=== PATIENT | female | born 1965 | race Caucasian/White ===

== ENCOUNTER → 2016-11-15 | Outpatient (CLI) | payer OTHER ==
[2016-11-15 08:52] VITALS: BP 127/66; PULSE 87; RESP 16; TEMP 98.2; BMI 34.5
--- NOTE | 2016-11-15 09:46 | P.GSHP ---
History of Present Illness H&P Date: 11/15/16 Chief Complaint: Obesity BMI 34.6 51 years old female with obesity BMI 34.6, height 5 feet 2 inches, weight 85.7 KG presents for bariatric surgery consultation. She has attended weight loss seminar. She has attempted nonsurgical weight loss with special diets including Weight Watchers, Slim fast, Atkins and exercise regimen. She has lost some weight but is unable to maintain sustained results. Her comorbid conditions include : Hypertension Hyperlipidemia PREOP VISIT#1 Weight 85.7KG, BMI 34.6 - Review of Systems Comment: Constitutional: Denies fever, weight loss or loss of appetite HEENT: No difficulty in vision or hearing. Denies dysphagia. Cardiovascular: Denies chest pain, palpitations, dizziness, shortness of breath. Respiratory: No cough or SOB Gastrointestinal: No recent change in bowel habits, no abdominal pain, no nausea or vomiting. Mild reflux symptoms and no postprandial right upper quadrant pain. Integumentary: No skin ulcers or breakdown Genitourinary: No urinary incontinence, hematuria or dysuria Neurologic: No seizures, denies weakness in upper or lower extremities Musculoskeletal: Occasional left knee pain. Psychiatry: No history of depression, no suicidal ideation, no anxiety or psychosis Past Medical History Past Medical History: GERD/Reflux, Hyperlipidemia, Hypertension History of Any Multi-Drug Resistant Organisms: None Reported Past Surgical History: Cholecystectomy, Hysterectomy Past Anesthesia/Blood Transfusion Reactions: No Reported Reaction Past Psychological History: No Psychological Hx Reported Smoking Status: Never smoker Medications and Allergies Home Medications Medication Instructions Recorded Confirmed Type Lisinopril [Prinivil] 10 mg PO DAILY 11/15/16 11/15/16 History Pravastatin Sodium [Pravachol] 40 mg PO HS 11/15/16 11/15/16 History Allergies Allergy/AdvReac Type Severity Reaction Status Date / Time No Known Allergies Allergy Verified 11/15/16 08:37 Surgical - Exam Vital Signs Temp Pulse Resp BP 98.2 F 87 16 127/66 11/15/16 08:34 11/15/16 08:34 11/15/16 08:34 11/15/16 08:34 General: Patient is alert and oriented to time, place and person and cooperative with exam. HEENT: No pallor, no icterus, no thyroid enlargement, no cervical lymphadenopathy. Chest: Bilateral equal breath sounds present. No wheezes, no crackles. Cardiovascular: Regular rate and rhythm. Abdomen: Soft, nontender, nondistended. Integumentary:. No active ulcers or discharge. Neurologic: Cranial nerves II-XII intact. Strength upper and lower extremities 5/5. No focal neurologic deficits. Gait is normal. Psychiatric: No anxiety or psychosis. No suicidal thoughts. Assessment and Plan (1) Obesity (BMI 30.0-34.9) Status: Acute (2) Hypertension Status: Acute (3) Hyperlipidemia Status: Acute Plan: 1. Bilateral screening mammogram 2. Patient has obesity with BMI of 34.6. She has tried various diets and exercise regimens without much success. At this time her BMI is less than 35 and she does not qualify for bariatric surgery. 3. Patient encouraged to take daily multivitamins 4. Will follow up as needed. Will not perform any bariatric surgery work up at this time
== END ==
LOC: BARWHC3 08:28
PROVIDERS: ATTEND Surgery
DX: E66.9 Obesity, unspecified (principal); I10 Essential (primary) hypertension; E78.5 Hyperlipidemia, unspecified; Z68.34 Body mass index [BMI] 34.0-34.9, adult; Z79.899 Other long term (current) drug therapy
CPT/HCPCS: 99201

== ENCOUNTER → 2016-12-11 | Outpatient (CLI) | payer OTHER ==
[2016-12-11 08:28] VITALS: BP 113/82; PULSE 82; TEMP 97.9; BMI 35.7
--- NOTE | 2016-12-11 09:14 | P.GSHP ---
History of Present Illness H&P Date: 12/11/16 Chief Complaint: Morbid Obesity BMI 35.8 51 years old female with obesity BMI height 5 feet 2 inches, weight presents for bariatric surgery consultation. She has attended weight loss seminar. She has attempted nonsurgical weight loss with special diets including Weight Watchers, Slim fast, Atkins and exercise regimen. She has lost some weight but is unable to maintain sustained results. Her comorbid conditions include : Hypertension Hyperlipidemia She has not decided about gastric bypass vs. sleeve PREOP VISIT#1 11/15/16 Weight 85.7KG, BMI 34.6 PREOP VISIT#2 12/11/16 Weight 88.6 KG , BMI 35.8 - Review of Systems Comment: Constitutional: Denies fever, weight loss or loss of appetite HEENT: No difficulty in vision or hearing. Denies dysphagia. Cardiovascular: Denies chest pain, palpitations, dizziness, shortness of breath. Respiratory: No cough or SOB Gastrointestinal: No recent change in bowel habits, no abdominal pain, no nausea or vomiting. Mild reflux symptoms well controlled with TUMS ( once or twice/week) and no postprandial right upper quadrant pain. Integumentary: No skin ulcers or breakdown Genitourinary: No urinary incontinence, hematuria or dysuria Neurologic: No seizures, denies weakness in upper or lower extremities Musculoskeletal: Neck pain Psychiatry: No history of depression, no suicidal ideation, no anxiety or psychosis Past Medical History Past Medical History: GERD/Reflux, Hyperlipidemia, Hypertension History of Any Multi-Drug Resistant Organisms: None Reported Past Surgical History: Cholecystectomy, Hysterectomy Past Anesthesia/Blood Transfusion Reactions: No Reported Reaction Past Psychological History: No Psychological Hx Reported Smoking Status: Never smoker Medications and Allergies Home Medications Medication Instructions Recorded Confirmed Type Lisinopril [Prinivil] 10 mg PO DAILY 11/15/16 12/11/16 History Pravastatin Sodium [Pravachol] 40 mg PO HS 11/15/16 12/11/16 History Allergies Allergy/AdvReac Type Severity Reaction Status Date / Time No Known Allergies Allergy Verified 12/11/16 08:22 Surgical - Exam Vital Signs Temp Pulse BP 97.9 F 82 113/82 12/11/16 08:20 12/11/16 08:20 12/11/16 08:20 General: Patient is alert and oriented to time, place and person and cooperative with exam. HEENT: No pallor, no icterus, no thyroid enlargement, no cervical lymphadenopathy. Chest: Bilateral equal breath sounds present. No wheezes, no crackles. Cardiovascular: Regular rate and rhythm. Abdomen: Soft, nontender, nondistended. Integumentary:. No active ulcers or discharge. Neurologic: Cranial nerves II-XII intact. Strength upper and lower extremities 5/5. No focal neurologic deficits. Gait is normal. Psychiatric: No anxiety or psychosis. No suicidal thoughts. Results - Labs 12/11/16 09:16 12/11/16 09:16 Assessment and Plan (1) Hyperlipidemia Status: Acute (2) Hypertension Status: Acute Plan: 1. Bilateral screening mammogram 2. Patient has obesity with BMI of 35.8 . She has tried various diets and exercise regimens without much success. 3. Patient encouraged to take daily multivitamins 4. EGD with bx 5. Preop labs including mineral and vitamin levels 6. 6 months supervised weight loss required 7. Needs Pyschiatry/Psychology evaluation
[2016-12-11 09:22] LABS: EKG EKG PERFORMED
[2016-12-11 10:52] LABS: CH 29.7; CHCM 34.1; HCT 43.9 % (34.0-46.0); HDW 2.55; HGB 15.1 gm/dL (11.4-16.0); MCHC 34.3 g/dL (31.0-37.0); MCV 87.3 fL (80.0-100.0); Mean Platelet Volume 6.6; RBC 5.03 m/uL (3.80-5.40); RDW 12.8 % (11.5-15.5); WBC 8.3 k/uL (3.8-10.6)
[2016-12-11 11:07] LABS: ALT 39 U/L (9-52); AST 29 U/L (14-36); Alkaline Phosphatase 102 U/L (38-126); Anion Gap 13 mmol/L; Blood Urea Nitrogen 24 mg/dL (7-17); Calcium 10.2 mg/dL (8.4-10.2); Carbon Dioxide 25 mmol/L (22-30); Chloride 104 mmol/L (98-107); Cholesterol 206 mg/dL (<200); Glucose 130 mg/dL (74-99); HDL Cholesterol 50 mg/dL (40-60); Iron 80 ug/dL (37-170); Non-African American GFR(MDRD) >60 (>60 ml/min/1.73 sqM); Potassium 4.7 mmol/L (3.5-5.1); Sodium 142 mmol/L (137-145); Total Bilirubin 0.5 mg/dL (0.2-1.3); Total Protein 7.5 g/dL (6.3-8.2); Triglycerides 212 mg/dL (<150)
[2016-12-11 11:17] LABS: % Iron Saturation 22.5 % (20-50); Total Iron Binding Capacity 355 ug/dL (265-497)
[2016-12-11 12:13] LABS: Vitamin B12 800 pg/mL (239-931)
[2016-12-11 14:34] LABS: Hemoglobin A1C 6.1 % (4.2-6.1)
== END | disposition home or self-care (01) ==
LOC: BARWHC3 07:52
PROVIDERS: ATTEND Surgery
DX: E66.01 Morbid (severe) obesity due to excess calories (principal); E78.5 Hyperlipidemia, unspecified; I10 Essential (primary) hypertension; D50.8 Other iron deficiency anemias; E44.0 Moderate protein-calorie malnutrition; E55.9 Vitamin D deficiency, unspecified; Z68.35 Body mass index [BMI] 35.0-35.9, adult
CPT/HCPCS: 36415; 80053; 80061; 82306; 82607; 82728; 82746; 83036; 83540; 83550; 84425; 84443; 85027; 93005; 99211

== ENCOUNTER 2016-12-27 11:13 | Day surgery (SDC) | payer OTHER ==
[2016-12-22 10:08] VITALS: BMI 35.6
[~2016-12-27 11:13] MED LIST: LACTATED RINGERS 1,000 ML IV SCH; LIDOCAINE 1% 20 ML VIAL (10MG/ML) FOR IV START INTRADERMA PRN
[2016-12-27 11:57] VITALS: RESP 16; TEMP 98.5
[2016-12-27] MEDS ORDERED: MIDAZOLAM 2 MG/2 ML VIAL IV ONE (12:12)
[2016-12-27] MEDS ORDERED: PROPOFOL 10 MG/ML 20 ML VIAL IV ONE (12:41)
--- NOTE | 2016-12-27 12:59 | P.OP ---
Date of Procedure: 12/27/16 Preoperative Diagnosis: Obesity BMI 35.7 Gastroesophageal reflux disease Postoperative Diagnosis: Same Procedure(s) Performed: Esophagogastroduodenoscopy with biopsy Implants: Anesthesia: MAC Surgeon: Kathrin Dahl Pathology: other Condition: stable Disposition: PACU Indications for Procedure: 51 years old female with obesity BMI 35.7 presents for bariatric surgery workup. She has occasional reflux symptoms. Informed consent obtained and patient did undergo EGD with possible biopsy Operative Findings: Patulous GE junction. Small Hill grade 1 hiatal hernia Description of Procedure: A timeout was performed to verify the correct patient and correct procedure. Patient was on continuous vitals and pulse ox monitoring throughout the procedure. She was placed in lateral decubitus position and an oral bite block was inserted. A well-lubricated Olympus upper endoscope was passed orally. The esophagus was intubated without difficulty. The vocal cords were visualised and protected at all times. The endoscope was passed beyond the pylorus into the first and second portion of the duodenum. No abnormality was noted in the duodenum mucosa. Two random biopsies were taken from the gastric antrum using cold biopsy forceps. The scope was then retroflexed. The GE junction was patulous and a small hiatal was noted which is Hill Grade 1. No mass, active ulcer or bleeding stigmata noted within the gastric lumen. The GE junction is measured at 38 cm from the incisors . Mild distal esophagitis. This area was biopsied using cold biopsy forceps.The endoscope was gradually withdrawn. No abnormality identified in the esophagus. Patient tolerated the procedure well and was taken to post anesthesia care unit in stable condition. FINAL DIAGNOSIS: 1. Hill Grade 1 Hiatal hernia 2. Gastro esophageal reflux disease SPECIMEN: Antral biopsy GE junction biopsy Final Pathologic Diagnosis A. GASTRIC ANTRUM, BIOPSY: MILD CHRONIC GASTRITIS. IMMUNOPEROXIDASE STAIN NEGATIVE FOR HELICOBACTER PYLORI ORGANISMS (CONTROLS APPROPRIATE). B. ESOPHAGUS, BIOPSY: BENIGN SQUAMOUS MUCOSA WITHOUT HISTOPATHOLOGIC CHANGES AND ADJACENT GASTRIC GLANDULAR MUCOSA WITH MILD CHRONIC INFLAMMATION. NEGATIVE FOR INTESTINAL METAPLASIA.
[2016-12-27 13:33] VITALS: BP 126/81; PULSE 77
== END 2016-12-27 13:40 | disposition home or self-care (01) ==
LOC: ORWHC2ENDO 11:13
PROVIDERS: ATTEND Surgery
DX: K29.50 Unspecified chronic gastritis without bleeding (principal); K44.9 Diaphragmatic hernia without obstruction or gangrene; K21.9 Gastro-esophageal reflux disease without esophagitis; E66.01 Morbid (severe) obesity due to excess calories; Z68.35 Body mass index [BMI] 35.0-35.9, adult; I10 Essential (primary) hypertension; E78.5 Hyperlipidemia, unspecified; Z79.899 Other long term (current) drug therapy
CPT/HCPCS: 88305; 88342; 43239; J2250; J2704

== ENCOUNTER → 2017-04-16 | Outpatient (CLI) | payer OTHER ==
[2017-04-16 08:52] VITALS: BP 141/89; PULSE 90; RESP 16; TEMP 98.4; BMI 35.7
--- NOTE | 2017-04-16 10:16 | P.GSHP ---
History of Present Illness H&P Date: 04/16/17 51 years old female with obesity BMI height 5 feet 2 inches, weight presents for bariatric surgery consultation. She has attended weight loss seminar. She has attempted nonsurgical weight loss with special diets including Weight Watchers, Slim fast, Atkins and exercise regimen. She has lost some weight but is unable to maintain sustained results. Her comorbid conditions include : Hypertension Hyperlipidemia GERD requiring daily Tums EGD - small hiatal hernia PREOP VISIT#1 11/15/16 Weight 85.7KG, BMI 34.6 PREOP VISIT#2 12/11/16 Weight 88.6 KG , BMI 35.8 - Review of Systems Comment: Constitutional: Denies fever, weight loss or loss of appetite HEENT: No difficulty in vision or hearing. Denies dysphagia. Cardiovascular: Denies chest pain, palpitations, dizziness, shortness of breath. Respiratory: No cough or SOB Gastrointestinal: No recent change in bowel habits, no abdominal pain, no nausea or vomiting. Reflux symptoms well controlled with TUMS ( once or twice/ week) and no postprandial right upper quadrant pain. Integumentary: No skin ulcers or breakdown Genitourinary: No urinary incontinence, hematuria or dysuria Neurologic: No seizures, denies weakness in upper or lower extremities Musculoskeletal: Neck pain Psychiatry: No history of depression, no suicidal ideation, no anxiety or psychosis Past Medical History Past Medical History: Hyperlipidemia, Hypertension History of Any Multi-Drug Resistant Organisms: None Reported Past Surgical History: Section, Cholecystectomy, Hysterectomy Additional Past Surgical History / Comment(s): CERVICAL FORAMINOTOMY, D & C X 2 , C-SECT X2, EXPLORATORY LAP, COLONOSCOPY, LT CATARACT REMOVAL Past Anesthesia/Blood Transfusion Reactions: No Reported Reaction Past Psychological History: No Psychological Hx Reported Smoking Status: Never smoker Past Alcohol Use History: Rare Past Drug Use History: None Reported - Past Family History Father Family Medical History: Cancer Medications and Allergies Home Medications Medication Instructions Recorded Confirmed Type Lisinopril [Prinivil] 10 mg PO HS 11/15/16 12/27/16 History Pravastatin Sodium [Pravachol] 40 mg PO HS 11/15/16 12/27/16 History Allergies Allergy/AdvReac Type Severity Reaction Status Date / Time No Known Allergies Allergy Verified 12/27/16 11:51 Surgical - Exam Vital Signs Temp Pulse Resp BP 98.4 F 90 16 141/89 04/16/17 08:46 04/16/17 08:46 04/16/17 08:46 04/16/17 08:46 General: Patient is alert and oriented to time, place and person and cooperative with exam. HEENT: No pallor, no icterus, no thyroid enlargement, no cervical lymphadenopathy. Chest: Bilateral equal breath sounds present. No wheezes, no crackles. Cardiovascular: Regular rate and rhythm. Abdomen: Soft, nontender, nondistended. Integumentary:. No active ulcers or discharge. Neurologic: Cranial nerves II-XII intact. Strength upper and lower extremities 5/5. No focal neurologic deficits. Gait is normal. Psychiatric: No anxiety or psychosis. No suicidal thoughts. Assessment and Plan (1) Obesity (BMI 30-39.9) Current Visit: Yes Status: Acute Code(s): E66.9 - OBESITY, UNSPECIFIED SNOMED Code(s): 739295362 (2) Hyperlipidemia Current Visit: No Status: Acute Code(s): E78.5 - HYPERLIPIDEMIA, UNSPECIFIED SNOMED Code(s): 70127665 (3) Hypertension Current Visit: No Status: Acute Code(s): I10 - ESSENTIAL (PRIMARY) HYPERTENSION SNOMED Code(s): 73575107 (4) GERD (gastroesophageal reflux disease) Current Visit: Yes Status: Acute Code(s): K21.9 - GASTRO-ESOPHAGEAL REFLUX DISEASE WITHOUT ESOPHAGITIS SNOMED Code(s): 900661368 Plan: 1. Bilateral screening mammogram 2. Patient has obesity with BMI of 35.8 . She has tried various diets and exercise regimens without much success. She has symptomatic reflux requiring daily Tums 3. Patient encouraged to take daily multivitamins 4. EGD with bx - results discussed 5. Preop labs including mineral and vitamin levels - results reviewed 6. 6 months supervised weight loss required 7. Needs Pyschiatry/Psychology evaluation 8. An indepth discussion was held with the patient, with GERD gastric bypass in a better option as sleeve may worsen reflux symptoms. 9. Patient care will be taken over by Dr. Carvajal including presurgical discussion
== END | disposition home or self-care (01) ==
LOC: BARWHC3 08:30
PROVIDERS: ATTEND Surgery
DX: E66.9 Obesity, unspecified (principal); E78.5 Hyperlipidemia, unspecified; I10 Essential (primary) hypertension; K21.9 Gastro-esophageal reflux disease without esophagitis; Z68.35 Body mass index [BMI] 35.0-35.9, adult; Z79.899 Other long term (current) drug therapy; Z01.812 Encounter for preprocedural laboratory examination
CPT/HCPCS: 97804

== ENCOUNTER → 2017-04-18 | Outpatient (CLI) | payer OTHER ==
[2017-04-18 16:34] VITALS: BP 159/92; PULSE 60; TEMP 97.9; BMI 35.6
--- NOTE | 2017-06-17 13:14 | P.HPBAR ---
Bariatric H&P - History & Physicial H&P Date: 04/18/17 History & Physicial: Visit/CC: preop visit Patient initial contact: 10/21/16 Initial weight: 88.621 kg Initial weight in pounds: 195.38 Height: 5 ft 2 in Initial BMI: 35.7 Last weight: Current weight: 88.451 kg Current weight in pounds: 195.00 Current BMI: 35.6 Muir body weight (based on NIH guidelines): 49.895 kg Excess body weight loss: 0.4% The patient is a 51 year-old F who presents for Bariatric Assessment. DATE OF SERVICE: 04/18/2017 REASON FOR CONSULTATION: Bariatric evaluation. HISTORY OF PRESENT ILLNESS: The patient is a 51-year-old female who presents with history morbid obesity. She reports a family history of morbid obesity where her cousin had sleeve gastrectomy. She reports lower back pain. She has developed fibromyalgia. She has osteoarthritis of the bilateral knees. She has personal history of lupus. As a result of morbid obesity, she has developed hypertension including sleep apnea. She has family history of diabetes type 2. She was personal history of metabolic syndrome as well as prediabetes. Now she presents for surgical intervention. She has tried medical supervised weight loss including Weight Watchers, Slim fast, Atkins and exercise regimen. Her highest personal weight is 195 pounds. She is looking into gastrectomy. She denies any familial history of esophageal or stomach cancer. Her present weight is 195 pounds. She denies any food ALLERGIES. No report of diarrhea or constipation. At her height of 5 foot 2 inches, her ideal body weight is 135 pounds. Her present weight is 195 pounds. She is 60 pounds overweight. PAST MEDICAL HISTORY: 1. Morbid obesity. 2. Body mass index of 35.8. 3. Metabolic syndrome. 4. Hyperlipidemia. 5. Hypertension. 6. Lupus. PAST SURGICAL HISTORY: 1. section. 2. Cholecystectomy. 3. Hysterectomy. 4. D&C 2. 5. Cervical foraminotomy. 6. Exploratory laparotomy. 7. Colonoscopy. 8. Left cataract extraction. HOME MEDICATIONS: 1. Prinivil. 2. Pravachol. ALLERGIES: Denies. SOCIAL HISTORY: No active tobacco use. FAMILY HISTORY: No family history of ulcerative colitis disease or Crohn's disease. Family history of morbid obesity. Lupus in family. No reports of stomach or esophageal cancer. REVIEW OF ORGAN SYSTEMS: CONSTITUTIONAL: At her height of 5 foot 2 inches, her ideal body weight is 135 pounds. Her present weight is 195 pounds. She is 60 pounds overweight. Her highest personal weight is 195 pounds. Body mass index of 35.8. HEENT: Denies any active troubles with vision or hearing. No troubles with swallowing. ENDOCRINE: No hypothyroidism. She is prediabetic. CARDIOVASCULAR: No reports of palpitations or heart attacks or chest pain. History of hypertension. RESPIRATORY: Has daytime somnolence including snoring and sleep apnea. No asthma. GI: Denies any bright red blood per rectum. Does have gastroesophageal reflux disease. MUSCULOSKELETAL: Has lower back pain and joint pain. NEURO: No headaches. No seizure disorders. PSYCH: No depression without suicidal ideation. Has anxiety. RHEUMATOLOGIC: Has lupus. No rheumatoid arthritis. HEMATOLOGIC: Denies any abnormal bleeding or bruising. No personal history of DVTs. SKIN: No rash. No skin cancer. PHYSICAL EXAM: VITAL SIGNS: Height 5 foot 2 inches, weight 195 pounds. BMI 35.7. Vital Signs Temp 97.9 F 04/18/17 16:31 Pulse 60 04/18/17 16:31 Resp BP 159/92 04/18/17 16:31 Pulse Ox GENERAL: Well-developed in no acute distress. HEENT: No scleral icterus. Extraocular movements grossly intact. Hears conversational speech. No nasal drainage. NECK: Supple without lymphadenopathy. Neck circumference 16-3/4 inches. CHEST: Nonlabored respirations with equal bilateral excursions. CARDIOVASCULAR: Regular rate. Regular rhythm. Distal 2+ pulses. ABDOMEN: Obese, soft, nontender, nondistended. Waist circumference is 43.75 inches. MUSCULOSKELETAL: No clubbing, cyanosis. Gross strength 5/5 distal lower extremities. No pre-tibial pitting edema. NEURO: No focal or lateralizing signs. Cranial nerves 2 through 12 grossly within normal limits. PSYCH: Appropriate affect. Alert and oriented to person, place and time. SKIN: Good skin turgor. Well perfused. STUDIES: EGD demonstrates gastroesophageal reflux disease including hiatal hernia. Final Pathologic Diagnosis A. GASTRIC ANTRUM, BIOPSY: MILD CHRONIC GASTRITIS. IMMUNOPEROXIDASE STAIN NEGATIVE FOR HELICOBACTER PYLORI ORGANISMS (CONTROLS APPROPRIATE). B. ESOPHAGUS, BIOPSY: BENIGN SQUAMOUS MUCOSA WITHOUT HISTOPATHOLOGIC CHANGES AND ADJACENT GASTRIC GLANDULAR MUCOSA WITH MILD CHRONIC INFLAMMATION. NEGATIVE FOR INTESTINAL METAPLASIA. ASSESSMENT: 1. Morbid obesity due to excess calories. 2. Body mass index of 35.8. 3. Metabolic syndrome. 4. Hyperlipidemia. 5. Hypertension. 6. Lupus. 7. Family history morbid obesity. 8. Sleep disturbance, sleep apnea. 9. Vitamin D deficiency. PLAN: 1. Surgical options including a band, gastric bypass, sleeve gastrectomy were described in detail. Alternatives such as gastric balloon including duodenal switch were described. 2. The [place] bariatric surgical collaborative data and outcomes calculator were described with surgical options. 3. Recommend a bariatric metabolic panel to evaluate for micro- including macronutrient deficiencies. 4. For history of daytime somnolence, recommend evaluation and treatment for sleep apnea. 5. Dietary surveillance and counseling was reviewed, I have asked increased protein intake to at least 60 grams daily. 6. Recommend medical risk assessment. 7. Psych assessment per insurance guidelines. 8. Patient has been seen Dr. Dahl in the interim also for medical supervised weight loss. Patient also reports daily Tums. With her symptoms of gastroesophageal reflux disease, gastric bypass is being evaluated. Thank you for this consultation. Past Medical History Past Medical History: Hyperlipidemia, Hypertension History of Any Multi-Drug Resistant Organisms: None Reported Past Surgical History: Section, Cholecystectomy, Hysterectomy Additional Past Surgical History / Comment(s): CERVICAL FORAMINOTOMY, D & C X 2 , C-SECT X2, EXPLORATORY LAP, COLONOSCOPY, LT CATARACT REMOVAL Past Anesthesia/Blood Transfusion Reactions: No Reported Reaction Past Psychological History: No Psychological Hx Reported Smoking Status: Never smoker Past Alcohol Use History: Rare Past Drug Use History: None Reported - Past Family History Father Family Medical History: Cancer Surgical - Exam Vital Signs Temp Pulse BP 97.9 F 60 159/92 04/18/17 16:31 04/18/17 16:31 04/18/17 16:31 Bariatric Checklist Checklist: Plan: Checklist: EGD: 1. Hiatal hernia: 2. H. Pylori: HgbA1c: Vitamin D: Smoking: Never smoker Primary care physician referral: Adrianna Psychiatry clearance: Cardiology clearance: Sleep study: Diet journal: VTE risk score: VTE risk level: Rehab needs at discharge:
== END | disposition home or self-care (01) ==
LOC: BARWHC3 15:38
PROVIDERS: ATTEND Surgery Plastic and Reconstructive Surgery
DX: Z48.815 Encounter for surgical aftercare following surgery on the digestive system (principal); E66.01 Morbid (severe) obesity due to excess calories; Z68.35 Body mass index [BMI] 35.0-35.9, adult; E88.81 Metabolic syndrome and other insulin resistance; I10 Essential (primary) hypertension; E78.5 Hyperlipidemia, unspecified; M32.9 Systemic lupus erythematosus, unspecified; G47.30 Sleep apnea, unspecified; E55.9 Vitamin D deficiency, unspecified; Z90.49 Acquired absence of other specified parts of digestive tract; Z90.710 Acquired absence of both cervix and uterus; Z98.890 Other specified postprocedural states; Z79.899 Other long term (current) drug therapy
CPT/HCPCS: 99211

== ENCOUNTER → 2019-03-28 | Outpatient (CLI) | payer OTHER ==
--- NOTE | 2019-03-28 11:59 | MR ---
EXAMINATION TYPE: MR brain wo con DATE OF EXAM: 03/28/2019 COMPARISON: NONE HISTORY: Migraine headache. TECHNIQUE: Multiplanar, multisequence imaging of the brain and brainstem is performed without IV cont rast. FINDINGS: Diffusion weighted images demonstrate no evidence of a recent infarct or other diffusion abnormality. There is no extraaxial fluid collection or significant white matter signal abnormality. The ventricu lar system and cisternal spaces are normal in size and appearance. The brain volume is age appropria te. Midline structures demonstrate normal morphology. The craniocervical junction appears within normal limits. Normal vascular flow voids are present. There is 1.5 cm mucous retention cyst or polyp in the mid left maxillary sinus otherwise paranasal sinuses are clear. Some artifact distortion at level of the globes is noted. Some patchy fluid inferiorly in the left maxillary sinus is present coronal dorothy ge 4 for reference. IMPRESSION: Possible mild inferior left-sided mastoiditis, correlate clinically. No suspicious white matter changes or other significant findings seen to account for patient's symptoms of migraine heada ches.
== END | disposition home or self-care (01) ==
LOC: RADMRIMAIN 11:04
PROVIDERS: ATTEND Psychiatry & Neurology Neurology
DX: G43.019 Migraine without aura, intractable, without status migrainosus (principal)
CPT/HCPCS: 70551

== ENCOUNTER → 2022-04-24 | Outpatient (CLI) | payer OTHER ==
[2022-04-24 16:10] LABS: Appearance,Urine Clear (Clear); Bilirubin,Urine Negative (Negative); Blood,Urine Negative (Negative); Color,Urine Yellow; Glucose,Urine (UA) Negative (Negative); Hyaline Casts,Urine 7 /lpf (0-2); Ketones,Urine 1+ (Negative); Leukocyte Esterase,Urine Small (Negative); Mucus,Urine Few /hpf; Nitrite,Urine Negative (Negative); PH, Urine 6.5 (5.0-8.0); Protein,Urine Trace (Negative); RBC,Urine 5 /hpf (0-5); Specific Gravity,Urine 1.026 (1.001-1.035); Squamous Epithelial Cell,Urine <1 /hpf (0-4); Urobilinogen,Urine <2.0 mg/dL (<2.0); WBC,Urine 10 /hpf (0-5)
[2022-04-24 18:48] LABS: Protein, Total 7.4 g/dL (6.2-8.2)
[2022-04-24 18:56] LABS: Hepatitis B Surface Antigen Nonreactive (Nonreactive); Hepatitis C IgG Antibody Nonreactive (Nonreactive)
[2022-04-24 19:01] LABS: Basophils # (A) 0.02 X 10*3/uL (0.00-0.10); Basophils % (A) 0.3 %; Eosinophils # (A) 0.01 X 10*3/uL (0.04-0.35); Eosinophils % (A) 0.2 %; HCT 45.1 % (37.2-46.3); HGB 15.1 g/dL (12.0-15.0); Immature Grans, Automated 0.3 %; Lymphocytes # (A) 0.83 X 10*3/uL (0.90-5.00); Lymphocytes % (A) 13.3 %; MCH 29.5 pg (27.0-32.0); MCHC 33.5 g/dL (32.0-37.0); MCV 88.1 fL (80.0-97.0); Mean Platelet Volume 9.2 fL (9.5-12.2); Monocytes # (A) 0.12 X 10*3/uL (0.20-1.00); Monocytes % (A) 1.9 %; NRBC Per 100 WBC 0 /100 WBCS (0.0-0.0); Neutrophils # (A) 5.26 X 10*3/uL (1.80-7.70); Platelet Count 347 X 10*3/uL (140-440); RBC 5.12 X 10*6/uL (4.10-5.20); RDW 12.1 % (11.5-14.5); WBC 6.26 X 10*3/uL (4.50-10.00)
[2022-04-24 19:05] LABS: ALT 21 U/L (8-44); AST 26 U/L (13-35); African American GFR (CKD) 74.7 (60.0-200.0); Albumin 4.9 g/dL (3.8-4.9); Albumin/Globulin Ratio 1.88 (1.60-3.17); Alkaline Phosphatase 108 U/L (41-126); BUN/Creat Ratio 21.17 Ratio (12.00-20.00); C Reactive Protein <0.30 mg/dL (0.00-0.80); Calcium 10.1 mg/dL (8.7-10.3); Chloride 107 mmol/L (96-109); Creatine Kinase 94 U/L (26-186); Globulin 2.6 g/dL (1.6-3.3); Glucose 104 mg/dL (70-110); Non-African American GFR(CKD) 64.4 (60.0-200.0); Potassium 4.4 mmol/L (3.5-5.5); Sodium 142 mmol/L (135-145); Total Protein 7.5 g/dL (6.2-8.2); Uric Acid 4.2 mg/dL (2.9-7.7)
[2022-04-24 19:14] LABS: Rheumatoid Factor, Qnt <10 IU/mL (0-15)
[2022-04-24 19:36] LABS: Erythrocyte Sedimentation Rate 16 mm/Hr (0-30)
[2022-04-24 21:42] LABS: Anti-Smith Ab Interp POSITIVE (NEGATIVE); Cardiolipin Ab IgG Interp NEGATIVE (NEGATIVE); Cardiolipin Ab IgM Interp NEGATIVE (NEGATIVE); Cardiolipin IgM Antibody <1.5 U/mL; Scleroderma SC-70 Ab <0.2 AI
[2022-04-24 21:43] LABS: Anti-DNA, DS unit <1.0 IU/mL; Centromere Antibody <0.2 AI; Centromere Antibody Interp NEGATIVE (NEGATIVE); Cyclic Citrull Pep IgG Unit <0.5 U/mL; Cyclic Citrullinated Pep IgG NEGATIVE (NEGATIVE); DNA Double-Stranded NEGATIVE (NEGATIVE)
[2022-04-25 11:06] LABS: Angiotensin-1 Converting Enz. 7 U/L (8-52)
[2022-04-25 11:31] LABS: APTT 37 Sec(s) (<43); Dilute Russell Viper Venom 33 Sec(s) (<44)
[2022-04-25 13:02] LABS: Histone Antibody 0.2 UNITS (<1.0)
[2022-04-25 13:21] LABS: C-ANCA <1:20 Titer (<1:20)
[2022-04-25 13:52] LABS: Free Kappa Lt Chain Qnt, Serum 2.41 mg/dL (0.33-1.94); Free Lambda Lt Chain Qnt, Seru 1.34 mg/dL (0.57-2.63)
[2022-04-25 14:12] LABS: HLA B27 NEGATIVE
[2022-04-25 15:21] LABS: Albumin 4.43 g/dL (3.80-4.90); Gamma Globulin 0.95 g/dL (0.70-1.50)
[2022-04-26 09:03] LABS: Aldolase 3.1 U/L (1.2-7.6)
== END | disposition home or self-care (01) ==
LOC: LABWHC1 13:01
PROVIDERS: ATTEND Internal Medicine Rheumatology
DX: M13.0 Polyarthritis, unspecified (principal)
CPT/HCPCS: 36415; 80053; 81001; 82085; 82164; 82306; 82550; 83516; 83520; 83883; 84165; 84439; 84443; 84550; 85025; 85613; 85652; 85730; 86038; 86039; 86140; 86147; 86160; 86162; 86200; 86225; 86235; 86255; 86334; 86431; 86803; 86812; 87340

== ENCOUNTER 2022-06-06 14:53 | Observation (INO) | payer OTHER ==
[2022-06-06] MEDS ORDERED: ASPIRIN 81 MG PO STA (15:25)
[2022-06-06] MEDS ORDERED: SODIUM CHLORIDE 0.9% 500 ML 500 ML IV STA (15:25)
[2022-06-06] MEDS ORDERED: NITROGLYCERIN OINT 1 INCH/GM PACKET TOPICAL STA (15:25)
--- NOTE | 2022-06-06 15:29 | ED ---
General Adult HPI - General Chief complaint: Chest Pain Stated complaint: lupus flare Time Seen by Provider: 06/06/22 15:17 Source: patient, RN notes reviewed Mode of arrival: ambulatory Limitations: no limitations - History of Present Illness Initial comments: Patient is a pleasant 56-year-old female presenting to emergency Department with multiple complaints. Patient feels symptoms could be related to her lupus. Patient has been having daily vomiting for the past several months. Patient has been severely fatigued. Patient has concerns for dehydration. Patient has been having exertional chest discomfort and dyspnea over the past month. Symptoms are intermittent. Patient feels generally weak. No isolated area of weakness or confusion. - Related Data Home Medications Medication Instructions Recorded Confirmed Pravastatin Sodium [Pravachol] 40 mg PO DAILY 11/15/16 06/06/22 lisinopriL [Prinivil] 10 mg PO DAILY 11/15/16 06/06/22 Acetaminophen Tab [Tylenol Tab] 500 mg PO Q8H PRN 06/06/22 06/06/22 DULoxetine HCL [Cymbalta] 60 mg PO DAILY 06/06/22 06/06/22 Dulaglutide [Trulicity] 0.75 mg SQ TU 06/06/22 06/06/22 Hydroxychloroquine Sulfate 200 mg PO DAILY 06/06/22 06/06/22 [Plaquenil] Naltrexone HCl/Bupropion HCl 2 tab PO BID 06/06/22 06/06/22 [Contrave ER 8-90 mg Tablet] Ondansetron Odt [Zofran Odt] 8 mg PO TID PRN 06/06/22 06/06/22 SUMAtriptan succinate [Imitrex] 50 mg PO BID PRN 06/06/22 06/06/22 Topiramate [Topamax] 50 mg PO DAILY 06/06/22 06/06/22 Allergies Allergy/AdvReac Type Severity Reaction Status Date / Time sulfamethoxazole AdvReac Migraines Verified 06/06/22 16:48 [From Bactrim] trimethoprim [From Bactrim] AdvReac Migraines Verified 06/06/22 16:48 seasonal/environmental Allergy Wheezing Uncoded 06/06/22 16:48 Review of Systems ROS Statement: Those systems with pertinent positive or pertinent negative responses have been documented in the HPI. ROS Other: All systems not noted in ROS Statement are negative. Respiratory: Reports: as per HPI Cardiovascular: Reports: as per HPI, chest pain, dyspnea on exertion Past Medical History Past Medical History: Diabetes Mellitus, Hyperlipidemia, Hypertension Additional Past Medical History / Comment(s): Lupus, Migraines, Colitis, Reynauds, Fibromialgia, History of Any Multi-Drug Resistant Organisms: None Reported Past Surgical History: Section, Cholecystectomy, Hysterectomy Additional Past Surgical History / Comment(s): CERVICAL FORAMINOTOMY, D & C X 2, C-SECT X2, EXPLORATORY LAP, COLONOSCOPY, LT CATARACT REMOVAL Past Anesthesia/Blood Transfusion Reactions: No Reported Reaction Past Psychological History: No Psychological Hx Reported Smoking Status: Never smoker Past Alcohol Use History: Rare Past Drug Use History: None Reported - Past Family History Father Family Medical History: Cancer General Exam Limitations: no limitations General appearance: alert, in no apparent distress Head exam: Present: normocephalic Respiratory exam: Present: normal lung sounds bilaterally. Absent: chest wall tenderness Cardiovascular Exam: Present: regular rate, normal rhythm Expanded Peripheral pulses: 2+: Radial (R), Radial (L), Posterior Tibialis (R), Posterior Tibialis (L) GI/Abdominal exam: Present: soft. Absent: tenderness Extremities exam: Present: normal inspection. Absent: pedal edema, calf tenderness Back exam: Present: normal inspection Neurological exam: Present: alert, oriented X3, CN II-XII intact. Absent: motor sensory deficit Psychiatric exam: Present: normal affect, normal mood Course Vital Signs 06/06/22 15:10 Temperature 98.0 F Pulse Rate 118 H Respiratory 18 Rate Blood Pressure 143/101 O2 Sat by Pulse 98 Oximetry EKG Findings - EKG Results: EKG: interpreted by ERMD (T wave inversion V1 and V2), sinus rhythm, normal axis, normal QRS Medical Decision Making - Medical Decision Making Patient reevaluated. Patient does not feel much better. Patient does have some dehydration. Patient will stay for cardiac evaluation. Case was discussed in detail with Dr. Gilliam, who will admit for Dr. Rodas. Was pt. sent in by a medical professional or institution? @ -n Did you speak to anyone other than the patient for history? @ -n Did you review nursing and triage notes? @ -S, and agree Were old charts reviewed? @ -n Differential Diagnosis? @ -Differential Chest Pain: Stable Angina, Unstable Angina, STEMI, NSTEMI Aortic Dissection, Pneumothorax, Musculoskeletal, Esophageal Spasm GERD, Cholecystitis, Pancreatitis, Zoster, this is not meant to be an all-inclusive list. EKG interpreted by me (3pts min.)? @ -y X-rays interpreted by me (1pt min.)? @ -y CT interpreted by me (1pt min.)? @ -[none] U/S interpreted by me (1pt. min.)? @ -[none] What testing was considered but not performed? (CT, X-rays, U/S, labs)? Why? @Consider computed tomography scan or V/Q scan however D-dimer test was negative What meds were considered but not given? Why? @ -[none] Did you discuss the management of the patient with other professionals? @ -Case was discussed with Dr. Gilliam, who will admit Did you reconcile home meds? @ -If done Was smoking cessation discussed for >3mins.? @ -[none] Was critical care preformed (if so, how long)? @ -[none] Were there social determinants of health that impacted care today? How? (Homelessness, low income, unemployed, alcoholism, drug addiction, transportation, low edu. Level, literacy, decrease access to med. care, prison, rehab)? @ -n Was there de-escalation of care discussed even if they declined? (Discuss DNR or withdrawal of care, Hospice)? @ -n What co-morbidities impacted this encounter? (DM, HTN, Smoking, COPD, CAD, Cancer, CVA, Hep., AIDS, mental health diagnosis, sleep apnea, morbid obesity)? @ -Patient does have history of lupus making her increased risk for cardiac disease Was patient admitted / discharged? @ -Admitted Undiagnosed new problem with uncertain prognosis? @ -New diagnosis with uncertain prognosis Drug Therapy requiring intensive monitoring for toxicity (Heparin, Nitro, Insulin, Cardizem)? @ -[none] Were any procedures done? @ -[none] Diagnosis/symptom? @ -Chest pain, dehydration Acute, or Chronic, or Acute on Chronic? @ -Acute, acute Uncomplicated (without systemic symptoms) or Complicated (systemic symptoms)? @ -Uncomplicated Side effects of treatment? @ -[none] Exacerbation, Progression, or Severe Exacerbation] @ -[no] Poses a threat to life or bodily function? @ -Chest pain does have potential for threat - Lab Data Result diagrams: 06/06/22 15:46 06/06/22 15:46 Lab Results 06/06/22 06/06/22 06/06/22 Range/Units 15:46 15:46 15:46 WBC 10.5 (3.8-10.6) k/uL RBC 4.99 (3.80-5.40) m/uL Hgb 15.6 (11.4-16.0) gm/dL Hct 45.0 (34.0-46.0) % MCV 90.3 (80.0-100.0) fL MCH 31.3 (25.0-35.0) pg MCHC 34.7 (31.0-37.0) g/dL RDW 12.2 (11.5-15.5) % Plt Count 326 (150-450) k/uL MPV 7.9 Neutrophils % 77 % Lymphocytes % 16 % Monocytes % 5 % Eosinophils % 1 % Basophils % 1 % Neutrophils # 8.1 H (1.3-7.7) k/uL Lymphocytes # 1.6 (1.0-4.8) k/uL Monocytes # 0.5 (0-1.0) k/uL Eosinophils # 0.1 (0-0.7) k/uL Basophils # 0.1 (0-0.2) k/uL PT 10.1 (9.0-12.0) sec INR 0.9 (<1.2) APTT 22.2 (22.0-30.0) sec D-Dimer <0.17 (<0.60) mg/L FEU Sodium (137-145) mmol/L Potassium (3.5-5.1) mmol/L Chloride (98-107) mmol/L Carbon Dioxide (22-30) mmol/L Anion Gap mmol/L BUN (7-17) mg/dL Creatinine (0.52-1.04) mg/dL Est GFR (CKD-EPI)AfAm (>60 ml/min/1.73 sqM) Est GFR (CKD-EPI)NonAf (>60 ml/min/1.73 sqM) Glucose (74-99) mg/dL Calcium (8.4-10.2) mg/dL Magnesium (1.6-2.3) mg/dL Total Bilirubin (0.2-1.3) mg/dL AST (14-36) U/L ALT (4-34) U/L Alkaline Phosphatase (38-126) U/L Troponin I (0.000-0.034) ng/mL Total Protein (6.3-8.2) g/dL Albumin (3.5-5.0) g/dL Amylase (30-110) U/L Lipase (23-300) U/L Urine Color Yellow Urine Appearance Cloudy H (Clear) Urine pH 5.5 (5.0-8.0) Ur Specific [place] 1.024 (1.001-1.035) Urine Protein 1+ H (Negative) Urine Glucose (UA) Negative (Negative) Urine Ketones 2+ H (Negative) Urine Blood Trace H (Negative) Urine Nitrite Negative (Negative) Urine Bilirubin Negative (Negative) Urine Urobilinogen <2.0 (<2.0) mg/dL Ur Leukocyte Esterase Small H (Negative) Urine RBC 1 (0-5) /hpf Urine WBC 12 H (0-5) /hpf Ur Squamous Epith Cells 1 (0-4) /hpf Urine Bacteria Rare H (None) /hpf Hyaline Casts 48 H (0-2) /lpf Urine Mucus Many H (None) /hpf 06/06/22 06/06/22 Range/Units 15:46 15:46 WBC (3.8-10.6) k/uL RBC (3.80-5.40) m/uL Hgb (11.4-16.0) gm/dL Hct (34.0-46.0) % MCV (80.0-100.0) fL MCH (25.0-35.0) pg MCHC (31.0-37.0) g/dL RDW (11.5-15.5) % Plt Count (150-450) k/uL MPV Neutrophils % % Lymphocytes % % Monocytes % % Eosinophils % % Basophils % % Neutrophils # (1.3-7.7) k/uL Lymphocytes # (1.0-4.8) k/uL Monocytes # (0-1.0) k/uL Eosinophils # (0-0.7) k/uL Basophils # (0-0.2) k/uL PT (9.0-12.0) sec INR (<1.2) APTT (22.0-30.0) sec D-Dimer (<0.60) mg/L FEU Sodium 141 (137-145) mmol/L Potassium 3.9 (3.5-5.1) mmol/L Chloride 108 H (98-107) mmol/L Carbon Dioxide 20 L (22-30) mmol/L Anion Gap 13 mmol/L BUN 32 H (7-17) mg/dL Creatinine 1.29 H (0.52-1.04) mg/dL Est GFR (CKD-EPI)AfAm 54 (>60 ml/min/1.73 sqM) Est GFR (CKD-EPI)NonAf 47 (>60 ml/min/1.73 sqM) Glucose 85 (74-99) mg/dL Calcium 9.9 (8.4-10.2) mg/dL Magnesium 2.0 (1.6-2.3) mg/dL Total Bilirubin 0.5 (0.2-1.3) mg/dL AST 26 (14-36) U/L ALT 17 (4-34) U/L Alkaline Phosphatase 80 (38-126) U/L Troponin I <0.012 (0.000-0.034) ng/mL Total Protein 7.2 (6.3-8.2) g/dL Albumin 4.7 (3.5-5.0) g/dL Amylase 93 (30-110) U/L Lipase 302 H (23-300) U/L Urine Color Urine Appearance (Clear) Urine pH (5.0-8.0) Ur Specific [place] (1.001-1.035) Urine Protein (Negative) Urine Glucose (UA) (Negative) Urine Ketones (Negative) Urine Blood (Negative) Urine Nitrite (Negative) Urine Bilirubin (Negative) Urine Urobilinogen (<2.0) mg/dL Ur Leukocyte Esterase (Negative) Urine RBC (0-5) /hpf Urine WBC (0-5) /hpf Ur Squamous Epith Cells (0-4) /hpf Urine Bacteria (None) /hpf Hyaline Casts (0-2) /lpf Urine Mucus (None) /hpf - Radiology Data Interpreted by me: Chest x-ray reveals no acute process Disposition Clinical Impression: Chest pain, Dehydration Disposition: ADMITTED IP TO THIS HOSP Is patient prescribed a controlled substance at d/c from ED?: No Referrals: Moe Rodas MD [Primary Care Provider] - 1-2 days Time of Disposition: 18:02
--- NOTE | 2022-06-06 15:41 | XR ---
EXAMINATION TYPE: XR chest 2V DATE OF EXAM: 06/06/2022 COMPARISON: NONE HISTORY: Chest pain. History of lupus. TECHNIQUE: Frontal and lateral views of the chest are obtained. FINDINGS: There is no focal air space opacity, pleural effusion, or pneumothorax seen. The cardiac silhouette size is within normal limits. The osseous structures are intact. Cholecystectomy clips a re seen. IMPRESSION: No acute process.
[2022-06-06 16:46] LABS: Basophils # (A) 0.1 k/uL (0-0.2); Basophils % (A) 1 %; Eosinophils # (A) 0.1 k/uL (0-0.7); Eosinophils % (A) 1 %; HGB 15.6 gm/dL (11.4-16.0); Lymphocytes # (A) 1.6 k/uL (1.0-4.8); Lymphocytes % (A) 16 %; MCH 31.3 pg (25.0-35.0); MCHC 34.7 g/dL (31.0-37.0); MCV 90.3 fL (80.0-100.0); Mean Platelet Volume 7.9; Monocytes # (A) 0.5 k/uL (0-1.0); Monocytes % (A) 5 %; Neutrophils # (A) 8.1 k/uL (1.3-7.7); Neutrophils % (A) 77 %; Platelet Count 326 k/uL (150-450); RBC 4.99 m/uL (3.80-5.40); RDW 12.2 % (11.5-15.5); WBC 10.5 k/uL (3.8-10.6)
[2022-06-06 16:47] LABS: Appearance,Urine Cloudy (Clear); Bacteria,Urine Rare /hpf; Bilirubin,Urine Negative (Negative); Blood,Urine Trace (Negative); Color,Urine Yellow; Glucose,Urine (UA) Negative (Negative); Hyaline Casts,Urine 48 /lpf (0-2); Ketones,Urine 2+ (Negative); Leukocyte Esterase,Urine Small (Negative); Mucus,Urine Many /hpf; Nitrite,Urine Negative (Negative); PH, Urine 5.5 (5.0-8.0); Protein,Urine 1+ (Negative); RBC,Urine 1 /hpf (0-5); Specific Gravity,Urine 1.024 (1.001-1.035); Squamous Epithelial Cell,Urine 1 /hpf (0-4); Urobilinogen,Urine <2.0 mg/dL (<2.0); WBC,Urine 12 /hpf (0-5)
[2022-06-06 16:57] LABS: INR 0.9 (<1.2); Partial Thromboplastin Time 22.2 sec (22.0-30.0); Prothrombin Time 10.1 sec (9.0-12.0)
[2022-06-06 17:06] LABS: Albumin 4.7 g/dL (3.5-5.0); Calcium 9.9 mg/dL (8.4-10.2); Potassium 3.9 mmol/L (3.5-5.1); Total Bilirubin 0.5 mg/dL (0.2-1.3); Total Protein 7.2 g/dL (6.3-8.2)
[2022-06-06] MEDS ORDERED: ACETAMINOPHEN TAB 500 MG TAB PO STA (17:17)
[2022-06-06] MEDS ORDERED: ACETAMINOPHEN TAB 500 MG TAB PO PRN (18:08)
[2022-06-06] MEDS ORDERED: NITROGLYCERIN SL TABS 0.4 MG TAB SUBLINGUAL PRN (18:12)
[2022-06-06] MEDS ORDERED: SODIUM CHLORIDE 0.9% 1,000 ML IV STA (18:13)
[2022-06-06] MEDS: SUMAtriptan succinate 50 MG TAB PO PRN (20:11)
[2022-06-07] MEDS ORDERED: KETOROLAC 15 MG/ML 1 ML VIAL IVP STA (04:34)
[2022-06-07 08:51] LABS: Chol/HDL Ratio 3.18 Ratio; LDL Cholesterol,Calculated 93.2 mg/dL (0.0-131.0); VLDL Calculation 13.78 mg/dL (5.00-40.00)
[2022-06-07] MEDS ORDERED: ASPIRIN 325 MG TAB PO SCH (09:00)
[2022-06-07] MEDS ORDERED: lisinopriL 10 MG TAB PO SCH (09:00)
[2022-06-07] MEDS: TOPIRAMATE 25 MG TAB PO SCH (09:39)
[2022-06-07] MEDS: ASPIRIN 81 MG PO SCH (09:39)
[2022-06-07] MEDS: PRAVASTATIN SODIUM 40 MG TAB PO SCH (09:39)
[2022-06-07] MEDS: DULoxetine HCL 60 MG CAPSULE.DR PO SCH (09:39)
[2022-06-07] MEDS: HYDROXYCHLOROQUINE SULFATE 200 MG TAB PO SCH (10:01)
--- NOTE | 2022-06-07 10:28 | P.CRDCN ---
History of Present Illness History of present illness: HISTORY OF PRESENT ILLNESS: This is a 56-year-old female with a past medical history significant for hypertension, hyperlipidemia, diabetes, and lupus. 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 We have been asked to see the patient in consultation for chest pain. Patient examined at the bedside. Patient states over the past few weeks she has been feeling dizzy. She states she is unable to stand for longer than 15 minutes without feeling like she is going to pass out. She states that other day she had to use a stool to make breakfast because the dizziness was so bad. She reports that her ears get very hot and she becomes nauseated. She does report over the past 2 days she has been throwing up. She states that she threw up 3 times yesterday. She also reports having some intermittent shortness of breath over the past 7-10 days. She states she has been using her son's inhaler which has been helping. She reports having some chest discomfort when she feels short of breath. She reports having a fever at home but states this is not unusual for her secondary to her lupus. The patient was noted to be hypotensive with a systolic blood pressure in the 80s and 90s. She is prescribed lisinopril 10 mg on an outpatient basis. The patient does report that she has lost almost 60 pounds over the past year. She reports a family history of coronary artery disease and states her dad had a MS at the age of 39. * EKG reveals sinus mechanism with no signs of acute ischemia * Chest xray negative for acute process * Laboratory data: WBC 10.5. Hemoglobin 15.6. Platelet count 326. D-dimer 0.17. Sodium 141. Potassium 3.9. BUN 32. Creatinine 1.29. Troponin negative 3. ProBNP 33. Lipase 302. * Current home cardiac medications include lisinopril 10 mg daily and Pravachol 40 mg daily REVIEW OF SYSTEMS: At the time of my exam: CONSTITUTIONAL: Denies fever or chills. HEENT: Denies blurred vision, vision changes, or eye pain. Denies hemoptysis CARDIOVASCULAR: Denies chest pain. Denies orthopnea. Denies PND. Denies palpitations RESPIRATORY: Denies shortness of breath. GASTROINTESTINAL: Denies abdominal pain. Denies nausea or vomiting. HEMATOLOGIC: Denies bleeding disorders. GENITOURINARY: Denies any blood in urine. SKIN: Denies pruitis. Denies rash. PHYSICAL EXAM: VITAL SIGNS: Reviewed. GENERAL: Well-developed in no acute distress. HEENT: Head is normocephalic. Pupils are equal, round. Sclerae anicteric. Mucous membranes of the mouth are moist. Neck supple. No JVD or thyromegaly LUNGS: Respirations even and unlabored. Lungs essentially clear to auscultation bilaterally. HEART: Regular rate and rhythm. S1 and S2 heard. ABDOMEN: Soft. Nondistended. Nontender. EXTREMITIES: Normal range of motion. No clubbing or cyanosis. Peripheral pulses intact. No lower extremity edema NEUROLOGIC: Awake and alert. Oriented x 3. ASSESSMENT: Dizziness, may be secondary to hypotension Nausea and vomiting Decreased oral intake Mild acute kidney injury Hypertension, currently hypotensive Shortness of breath, etiology unclear Hyperlipidemia Diabetes Lupus PLAN: An acute coronary event has been ruled out Discontinue lisinopril secondary to hypotension Check orthostatic blood pressures Continue IV fluid hydration Obtain 2-D echo to assess cardiac structure and function Will consider outpatient stress testing Further recommendations pending patient course Nurse practitioner note has been reviewed by physician. Signing provider agrees with the documented findings, assessment, and plan of care. Past Medical History Past Medical History: Diabetes Mellitus, Hyperlipidemia, Hypertension Additional Past Medical History / Comment(s): Lupus, Migraines, Colitis, Reynauds, Fibromialgia, History of Any Multi-Drug Resistant Organisms: None Reported Past Surgical History: Section, Cholecystectomy, Hysterectomy Additional Past Surgical History / Comment(s): CERVICAL FORAMINOTOMY, D & C X 2, C-SECT X2, EXPLORATORY LAP, COLONOSCOPY, LT CATARACT REMOVAL Past Anesthesia/Blood Transfusion Reactions: No Reported Reaction Past Psychological History: No Psychological Hx Reported Smoking Status: Never smoker Past Alcohol Use History: Rare Past Drug Use History: None Reported - Past Family History Father Family Medical History: Cancer Medications and Allergies Home Medications Medication Instructions Recorded Confirmed Type Pravastatin Sodium [Pravachol] 40 mg PO DAILY 11/15/16 06/06/22 History lisinopriL [Prinivil] 10 mg PO DAILY 11/15/16 06/06/22 History Acetaminophen Tab [Tylenol Tab] 500 mg PO Q8H PRN 06/06/22 06/06/22 History DULoxetine HCL [Cymbalta] 60 mg PO DAILY 06/06/22 06/06/22 History Dulaglutide [Trulicity] 0.75 mg SQ TU 06/06/22 06/06/22 History Hydroxychloroquine Sulfate 200 mg PO DAILY 06/06/22 06/06/22 History [Plaquenil] Naltrexone HCl/Bupropion HCl 2 tab PO BID 06/06/22 06/06/22 History [Contrave ER 8-90 mg Tablet] Ondansetron Odt [Zofran Odt] 8 mg PO TID PRN 06/06/22 06/06/22 History SUMAtriptan succinate [Imitrex] 50 mg PO BID PRN 06/06/22 06/06/22 History Topiramate [Topamax] 50 mg PO DAILY 06/06/22 06/06/22 History Allergies Allergy/AdvReac Type Severity Reaction Status Date / Time sulfamethoxazole AdvReac Migraines Verified 06/06/22 16:48 [From Bactrim] trimethoprim [From Bactrim] AdvReac Migraines Verified 06/06/22 16:48 seasonal/environmental Allergy Wheezing Uncoded 06/06/22 16:48 Physical Exam Vitals: Vital Signs Temp Pulse Resp BP Pulse Ox 06/07/22 06:40 64 16 84/64 99 06/07/22 04:39 70 14 103/72 100 06/07/22 03:42 63 14 98 06/06/22 23:43 80 14 98/76 100 06/06/22 20:14 100/69 06/06/22 20:12 97 18 92/64 98 06/06/22 15:10 98.0 F 118 H 18 143/101 98 Intake and Output 06/06/22 06/07/22 06/07/22 22:59 06:59 14:59 Other: Weight 56.699 kg Results 06/06/22 15:46 06/06/22 15:46 Cardiac Enzymes 06/06/22 06/06/22 06/06/22 Range/Units 15:46 15:46 19:10 AST 26 (14-36) U/L Troponin I <0.012 <0.012 (0.000-0.034) ng/mL 06/06/22 Range/Units 22:16 AST (14-36) U/L Troponin I <0.012 (0.000-0.034) ng/mL Coagulation 06/06/22 Range/Units 15:46 PT 10.1 (9.0-12.0) sec APTT 22.2 (22.0-30.0) sec CBC 06/06/22 Range/Units 15:46 WBC 10.5 (3.8-10.6) k/uL RBC 4.99 (3.80-5.40) m/uL Hgb 15.6 (11.4-16.0) gm/dL Hct 45.0 (34.0-46.0) % Plt Count 326 (150-450) k/uL Comprehensive Metabolic Panel 06/06/22 Range/Units 15:46 Sodium 141 (137-145) mmol/L Potassium 3.9 (3.5-5.1) mmol/L Chloride 108 H (98-107) mmol/L Carbon Dioxide 20 L (22-30) mmol/L BUN 32 H (7-17) mg/dL Creatinine 1.29 H (0.52-1.04) mg/dL Glucose 85 (74-99) mg/dL Calcium 9.9 (8.4-10.2) mg/dL AST 26 (14-36) U/L ALT 17 (4-34) U/L Alkaline Phosphatase 80 (38-126) U/L Total Protein 7.2 (6.3-8.2) g/dL Albumin 4.7 (3.5-5.0) g/dL Current Medications Generic Name Dose Route Start Last Admin Trade Name Freq PRN Reason Stop Dose Admin Acetaminophen 500 mg 06/06/22 18:08 Acetaminophen Tab 500 Mg Tab PO Q8H PRN Fever and/ or Mild Pain Aspirin 325 mg 06/07/22 09:00 Aspirin 325 Mg Tab PO DAILY [facility] Duloxetine HCl 60 mg 06/07/22 09:00 Duloxetine Hcl 60 Mg Capsule.Dr PO DAILY [facility] Hydroxychloroquine Sulfate 200 mg 06/07/22 09:00 Hydroxychloroquine Sulfate 200 Mg Tab PO DAILY [facility] Lisinopril 10 mg 06/07/22 09:00 Lisinopril 10 Mg Tab PO DAILY [facility] Nitroglycerin 0.4 mg 06/06/22 18:12 Nitroglycerin Sl Tabs 0.4 Mg Tab SUBLINGUAL Q5M PRN Chest Pain Naltrexone Hcl/ 2 tab 06/06/22 21:00 06/06/22 20:03 Bupropion Hcl [ PO Not Given Contrave Er 8-90 Mg BID [facility]IDENCIO Tablet] 1 Each Table Pravastatin Sodium 40 mg 06/07/22 09:00 Pravastatin Sodium 40 Mg Tab PO DAILY [facility] Sumatriptan Succinate 50 mg 06/06/22 18:08 06/06/22 20:11 Sumatriptan Succinate 50 Mg Tab PO 50 mg BID PRN Administration Migraine Headache Topiramate 50 mg 06/07/22 09:00 Topiramate 25 Mg Tab PO DAILY [facility]IDENCIO Intake and Output 06/06/22 06/07/22 06/07/22 22:59 06:59 14:59 Other: Weight 56.699 kg 06/06/22 15:46 06/06/22 15:46
[2022-06-07] MEDS ORDERED: NALOXONE 0.4 MG/ML 1 ML VIAL IV PRN (11:30)
[2022-06-07] MEDS ORDERED: CALCIUM CARBONATE 500 MG CHEWABLE PO PRN (11:30)
[2022-06-07] MEDS ORDERED: ONDANSETRON 4 MG/2 ML VIAL IVP PRN (11:30)
[2022-06-07] MEDS ORDERED: ACETAMINOPHEN TAB 325 MG TAB PO PRN (11:30)
[2022-06-07] MEDS ORDERED: LACTULOSE 20 GM/30 ML CUP PO PRN (11:30)
[2022-06-07] MEDS ORDERED: ALPRAZolam 0.25 MG TAB PO PRN (11:30)
[2022-06-07] MEDS ORDERED: DEXTROSE 50% SYRINGE 50 ML IVP PRN ×2 (11:33)
[2022-06-07] MEDS: SODIUM CHLORIDE 0.9% 250 ML IV SCH ×10 (11:50→19:46)
[2022-06-07] MEDS: SODIUM CHLORIDE 0.9% 1,000 ML IV SCH ×2 (11:56→22:08)
[2022-06-07] MEDS: ENOXAPARIN 40 MG/0.4 ML SYRINGE SQ SCH (11:56)
[2022-06-07 13:23] LABS: Glucose,Whole Blood 70 mg/dL (70-110)
[2022-06-07] MEDS: traMADol 50 MG TAB PO PRN ×2 (15:02→22:46)
[2022-06-07] MEDS: INSULIN ASPART (NovoLOG) 100 UNIT/ML VIAL SQ SCH ×2 (15:25→17:39)
--- NOTE | 2022-06-07 15:53 | US ---
EXAMINATION TYPE: US kidneys/renal and bladder DATE OF EXAM: 06/07/2022 COMPARISON: CT chest same date CLINICAL HISTORY: assess for ckd. Assess for CKD EXAM MEASUREMENTS: Right Kidney: 9.6 x 5.3 x 5.1 cm Left Kidney: 9.5 x 4.9 4.9 cm Right Kidney: Complex/heterogeneous area seen at mid: 3.0 x 2.6 x 3.5 cm. Left Kidney: Appearance of probable column of Alexandro. Bladder: Not distended Bilateral Jets seen: No This area appears isodense on the CT examination. IMPRESSION: 1. Complex heterogenous mid pole right renal solid area. This is not a typical column of Alexandro. Neop lasm is not excluded. Follow-up recommended.
--- NOTE | 2022-06-07 16:10 | P.HPIM ---
History of Present Illness H&P Date: 06/07/22 Chief Complaint: Dizzy chest tightness This is a pleasant 56-year-old patient who follows with Dr. Rodas. 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 Patient had a unclear diagnosis of lupus in the past but this was confirmed 3 months ago. Chronic stable medical conditions include diabetes, fibromyalgia, hyperlipidemia, hypertension, migraines, hiatal hernia, chronic colitis, Raynaud's,. Patient is accompanied to the ER with her . For about 4 weeks patient started noticing that she is getting dizzy. More so when she stands up. Upon standing she may also get ringing in the ears also gets nausea. Some nausea vomiting also present with oral intake. No change in her bowel pattern which is somewhat irregular. Also congestive heart flashes feeling and episodes of perspiration. Patient has aches and pains in different joints and muscles. Does get short of breath on exertion. Also has a chest tightness. Does get intermittent headaches. No edema. Patient has Track with bloody vision. She takes Cymbalta for depression and anxiety. Review of systems: GEN.: Decreased appetite tired his heart EYES: As above] HEENT: None NECK: None RESPIRATORY: As above CARDIOVASCULAR: As above GASTROINTESTINAL: No abdominal pain GENITOURINARY: None MUSCULOSKELETAL: Generalized aches and pains LYMPHATICS: None HEMATOLOGICAL: None PSYCHIATRY: Anxious NEUROLOGICAL: None Past medical history to include: Diabetes, fibromyalgia, hyperlipidemia, hypertension, diabetes type 2, lupus, migraines, hiatal hernia, colitis, Raynaud's, right eye cataract, anxiety depression Social history: . No smoking or alcohol. Works as a high school football coach. Family history: Prostate cancer Physical examination: VITAL SIGNS: 98, 97, 18, 92/64, 98% room air GENERAL: BMI 22.9, reclining in bed tired. EYES: Pupils equal. Conjunctiva normal. HEENT: External appearance of nose and ears normal, oral cavity grossly normal. NECK: JVD not raised; masses not palpable. HEART: First and second heart sounds are normal; no edema. LUNGS: Respiratory rate normal; clear to auscultation. ABDOMEN: Soft, nontender, liver spleen not palpable, no masses palpable. PSYCH: [Alert and oriented x3; mood and affect anxious l. MUSCULOSKELETAL:No Clubbing/cyanosis;muscles-grossly intact NEUROLOGICAL: Cranial nerves grossly intact; no facial asymmetry, power and sensation grossly intact. LYMPHATICS: No lymph nodes palpable in the axilla and neck INVESTIGATIONS, reviewed in the clinical context: Ultrasound: Complex heterogenous area seen at mid 3 cm x 2.6 cm x 3.5 cm. White count 10.5 hemoglobin 15.6 platelets 326 progression 3.9 BUN 32 creatinine 1.29 Troponin I less than 0.0123 LDL 93 UA positive for 2+ ketones, protein 1+, WBC 12 EKG tracing personally reviewed by me-normal sinus rhythm nonspecific T-wave changes Chest x-ray film personally reviewed by me-possible some interstitial prominence Assessment and plan: -Patient presents with multiple symptoms. Dizziness for last 4 weeks. Nausea vomiting. Chest tightness shortness of breath with exertion. Several of these symptoms could be explained by lupus itself. We have to dissect out individual symptoms and work with the same. 2-D echocardiogram. High resolution CT chest to rule out pulmonary fibrosis. MRI of the brain. -Possible chronic kidney disease from underlying lupus. Patient has proteinuria and UA. Renal ultrasound noted. IV hydrate. If no acute component then will have patient follow-up with nephrology -Lupus. Patient does follow Dr. Craven as outpatient. plaquenil -Diabetes mellitus type 2 Continue Trulicity. Follow Accu-Cheks -Essential hypertension Prinivil -Anxiety depression otherwise specified Cymbalta -Hyperlipidemia Pravachol 2-D echocardiogram. High resolution CT chest to rule out pulmonary fibrosis. MRI of the brain. Orthostatic. Consultation to cardiology, neurology. Care was discussed with the patient and at bedside. Patient not able to keep any food down. Try a full liquid diet. Past Medical History Past Medical History: Diabetes Mellitus, Hyperlipidemia, Hypertension Additional Past Medical History / Comment(s): Lupus, Migraines, Colitis, Reynauds, Fibromialgia, History of Any Multi-Drug Resistant Organisms: None Reported Past Surgical History: Section, Cholecystectomy, Hysterectomy Additional Past Surgical History / Comment(s): CERVICAL FORAMINOTOMY, D & C X 2, C-SECT X2, EXPLORATORY LAP, COLONOSCOPY, LT CATARACT REMOVAL Past Anesthesia/Blood Transfusion Reactions: No Reported Reaction Past Psychological History: No Psychological Hx Reported Smoking Status: Never smoker Past Alcohol Use History: Rare Past Drug Use History: None Reported - Past Family History Father Family Medical History: Cancer Mother Family Medical History: Musculoskeletal Disorder Additional Family Medical History / Comment(s): Mother from MS. Medications and Allergies Home Medications Medication Instructions Recorded Confirmed Type Pravastatin Sodium [Pravachol] 40 mg PO DAILY 11/15/16 06/06/22 History lisinopriL [Prinivil] 10 mg PO DAILY 11/15/16 06/06/22 History Acetaminophen Tab [Tylenol Tab] 500 mg PO Q8H PRN 06/06/22 06/06/22 History DULoxetine HCL [Cymbalta] 60 mg PO DAILY 06/06/22 06/06/22 History Dulaglutide [Trulicity] 0.75 mg SQ TU 06/06/22 06/06/22 History Hydroxychloroquine Sulfate 200 mg PO DAILY 06/06/22 06/06/22 History [Plaquenil] Naltrexone HCl/Bupropion HCl 2 tab PO BID 06/06/22 06/06/22 History [Contrave ER 8-90 mg Tablet] Ondansetron Odt [Zofran Odt] 8 mg PO TID PRN 06/06/22 06/06/22 History SUMAtriptan succinate [Imitrex] 50 mg PO BID PRN 06/06/22 06/06/22 History Topiramate [Topamax] 50 mg PO DAILY 06/06/22 06/06/22 History Allergies Allergy/AdvReac Type Severity Reaction Status Date / Time sulfamethoxazole AdvReac Migraines Verified 06/06/22 16:48 [From Bactrim] trimethoprim [From Bactrim] AdvReac Migraines Verified 06/06/22 16:48 seasonal/environmental Allergy Wheezing Uncoded 06/06/22 16:48 Physical Exam Vitals: Vital Signs Temp Pulse Resp BP Pulse Ox 06/07/22 06:40 64 16 84/64 99 06/07/22 04:39 70 14 103/72 100 06/07/22 03:42 63 14 98 06/06/22 23:43 80 14 98/76 100 06/06/22 20:14 100/69 06/06/22 20:12 97 18 92/64 98 06/06/22 15:10 98.0 F 118 H 18 143/101 98 Intake and Output 06/06/22 06/07/22 06/07/22 22:59 06:59 14:59 Other: Weight 56.699 kg Results CBC & Chem 7: 06/06/22 15:46 06/06/22 15:46 Labs: Abnormal Lab Results - Last 24 Hours (Table) 06/06/22 06/06/22 06/06/22 Range/Units 15:46 15:46 15:46 Neutrophils # 8.1 H (1.3-7.7) k/uL Chloride 108 H (98-107) mmol/L Carbon Dioxide 20 L (22-30) mmol/L BUN 32 H (7-17) mg/dL Creatinine 1.29 H (0.52-1.04) mg/dL Lipase 302 H (23-300) U/L Urine Appearance Cloudy H (Clear) Urine Protein 1+ H (Negative) Urine Ketones 2+ H (Negative) Urine Blood Trace H (Negative) Ur Leukocyte Esterase Small H (Negative) Urine WBC 12 H (0-5) /hpf Urine Bacteria Rare H (None) /hpf Hyaline Casts 48 H (0-2) /lpf Urine Mucus Many H (None) /hpf Microbiology - Last 24 Hours (Table) 06/06/22 15:46 Urine Culture - Preliminary Urine,Clean Catch
--- NOTE | 2022-06-07 16:29 | CT ---
EXAMINATION TYPE: CT high resolution chest without contrast DATE OF EXAM: 06/07/2022 COMPARISON: Radiograph 06/26/2021 HISTORY: 56-year-old female shortness of breath, Rule out pulmonary fibrosis. TECHNIQUE: High-resolution scanning of the chest utilizing 1 mm slice thickness and 1 cm gap per HRCT protocol. Both prone and supine imaging is performed. No IV contrast administered. CT DLP: 747.20 mGycm Automated exposure control for dose reduction was used. FINDINGS: Heart normal size without pericardial effusion. Borderline ectasia aorta 3.5 cm. Conventional branching anatomy. No thoracic lymphadenopathy by CT size criteria. Mild strandy subpleural density in the lower lobes likely dependent atelectasis as this improves on t he prone series. Follow-up can be considered if concern for subtle interstitial fibrosis. No honeycom romi, thickening of the bronchovascular bundles, dominant groundglass densities, bronchiectasis, tree -in-bud opacities, or centrilobular nodularity. Some minimal strandy atelectasis at the inferior lingula. There is a 7 mm posterior right midlung pulmonary nodule, axial image 139 series 4 which can be reass essed at 3-6 months. Tiny 3 mm lateral left upper lobe pulmonary nodule, axial image 85. No consolidation or pleural effusion. Visualized upper abdomen shows cholecystectomy clips. Moderate stool burden. Bones: No osseous destructive process identified. Normal variant sternal foramen. IMPRESSION: 1. SOME MILD STRANDY SUBPLEURAL DENSITY IN THE LOWER LOBES, COMPATIBLE WITH DEPENDENT ATELECTASIS THIS IMPROVES ON THE PRONE SERIES. NO SPECIFIC HRCT FINDINGS OF INTERSTITIAL LUNG DISEASE AT THIS SAVANNA E. 2. A COUPLE PULMONARY NODULES MEASURING UP TO 7 MM ARE NONSPECIFIC. 3-6 MONTH FOLLOW-UP CT TO [facility]ES S.
--- NOTE | 2022-06-07 16:52 | MR ---
EXAMINATION TYPE: MR brain wo/w con DATE OF EXAM: 06/07/2022 4:17 PM CLINICAL INDICATION:Female, 56 years old with history of dizzy; COMPARISON: MRI 03/28/2019. TECHNIQUE: Multi planar, multi sequence imaging was performed through the brain including: T1, T2, In version recovery, susceptibility weighted imaging and gradient echo imaging and Diffusion weighted im aging. The patient was then given intravenous contrast and multi planar, T1 fat-saturation images wer e obtained. IV Contrast: 6 cc Gadavist FINDINGS: The verdugo-white junctions, ventricular system, basal cisterns appear unremarkable. Diffusion-weighted imaging shows no evidence of restricted diffusion to suggest acute/subacute infarct. Intracranial art erial flow voids are maintained. Midline structures show no abnormality. Scattered foci of high T2 si gnal intensity are seen within the periventricular white matter. The susceptibility weighted images d o not reveal any evidence for micro-hemorrhage. After administration of gadolinium, no abnormal enhan cement is seen. The bone marrow signal is within normal limits. Paranasal sinuses and mastoid air cells: Trace left mastoid air cell effusion. Visualized orbits: Orbital contents are intact. IMPRESSION: 1. No evidence of intracranial mass, acute/subacute infarct, or abnormal enhancement. No significant change from prior. 2. Trace left mastoid air cell effusion.
[2022-06-07 17:32] LABS: Glucose,Whole Blood 69 mg/dL (70-110)
[2022-06-07 17:57] LABS: Glucose,Whole Blood 95 mg/dL (70-110)
[2022-06-07] MEDS: SUMAtriptan succinate 50 MG TAB PO PRN (18:14)
[2022-06-07 21:48] LABS: Glucose,Whole Blood 111 mg/dL (70-110)
[2022-06-07] MEDS: TEMAZEPAM 15 MG CAP PO PRN (22:46)
[2022-06-08 01:01] LABS: Appearance,Urine Clear (Clear); Bilirubin,Urine Negative (Negative); Blood,Urine Negative (Negative); Color,Urine Colorless; Glucose,Urine (UA) Negative (Negative); Ketones,Urine Negative (Negative); Leukocyte Esterase,Urine Small (Negative); Nitrite,Urine Negative (Negative); PH, Urine 5.5 (5.0-8.0); Protein,Urine Negative (Negative); Specific Gravity,Urine 1.004 (1.001-1.035); Squamous Epithelial Cell,Urine <1 /hpf (0-4); Urobilinogen,Urine <2.0 mg/dL (<2.0); WBC,Urine 3 /hpf (0-5)
[2022-06-08 06:06] LABS: Glucose,Whole Blood 78 mg/dL (70-110)
[2022-06-08] MEDS: INSULIN ASPART (NovoLOG) 100 UNIT/ML VIAL SQ SCH ×3 (06:06→18:08)
[2022-06-08] MEDS: SODIUM CHLORIDE 0.9% 1,000 ML IV SCH ×4 (06:26→20:41)
[2022-06-08] MEDS: ASPIRIN 81 MG PO SCH (08:26)
[2022-06-08] MEDS: PRAVASTATIN SODIUM 40 MG TAB PO SCH (08:26)
[2022-06-08] MEDS: ENOXAPARIN 40 MG/0.4 ML SYRINGE SQ SCH (08:26)
[2022-06-08] MEDS: TOPIRAMATE 25 MG TAB PO SCH (08:26)
[2022-06-08] MEDS: HYDROXYCHLOROQUINE SULFATE 200 MG TAB PO SCH (08:26)
[2022-06-08] MEDS: DULoxetine HCL 60 MG CAPSULE.DR PO SCH (08:26)
[2022-06-08] MEDS ORDERED: IBUPROFEN 800 MG TAB PO STA (09:26)
--- NOTE | 2022-06-08 10:05 | P.PN ---
Subjective Progress Note Date: 06/08/22 HISTORY OF PRESENT ILLNESS: This is a 56-year-old female with a past medical history significant for hypertension, hyperlipidemia, diabetes, and lupus. 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 We have been asked to see the patient in consultation for chest pain. Patient examined at the bedside. Patient states over the past few weeks she has been feeling dizzy. She states she is unable to stand for longer than 15 minutes without feeling like she is going to pass out. She states that other day she had to use a stool to make breakfast because the dizziness was so bad. She reports that her ears get very hot and she becomes nauseated. She does report over the past 2 days she has been throwing up. She states that she threw up 3 times yesterday. She also reports having some intermittent shortness of breath over the past 7-10 days. She states she has been using her son's inhaler which has been helping. She reports having some chest discomfort when she feels short of breath. She reports having a fever at home but states this is not unusual for her secondary to her lupus. The patient was noted to be hypotensive with a systolic blood pressure in the 80s and 90s. She is prescribed lisinopril 10 mg on an outpatient basis. The patient does report that she has lost almost 60 pounds over the past year. She reports a family history of coronary artery disease and states her dad had a VT at the age of 39. * EKG reveals sinus mechanism with no signs of acute ischemia * Chest xray negative for acute process * Laboratory data: WBC 10.5. Hemoglobin 15.6. Platelet count 326. D-dimer 0.17. Sodium 141. Potassium 3.9. BUN 32. Creatinine 1.29. Troponin negat jim 3. ProBNP 33. Lipase 302. * Current home cardiac medications include lisinopril 10 mg daily and Pravachol 40 mg daily 06/08/2022 Patient examined this morning at the bedside. Patient denies chest pain or pressure. Denies SOB. She denies any further episodes of nausea or vomiting. She has been up ambulating to the bathroom without dizziness. SBP currently in the 90-100s. She reports having a headache that started yesterday when she received nitro paste. PHYSICAL EXAM: VITAL SIGNS: Reviewed. GENERAL: Well-developed in no acute distress. HEENT: Head is normocephalic. Pupils are equal, round. Sclerae anicteric. Mucous membranes of the mouth are moist. Neck supple. No JVD or thyromegaly LUNGS: Respirations even and unlabored. Lungs essentially clear to auscultation bilaterally. HEART: Regular rate and rhythm. S1 and S2 heard. ABDOMEN: Soft. Nondistended. Nontender. EXTREMITIES: Normal range of motion. No clubbing or cyanosis. Peripheral pulses intact. No lower extremity edema NEUROLOGIC: Awake and alert. Oriented x 3. ASSESSMENT: Dizziness, may be secondary to hypotension Nausea and vomiting Decreased oral intake Mild acute kidney injury Hypertension, currently hypotensive Shortness of breath, etiology unclear Hyperlipidemia Diabetes Lupus PLAN: Continue to hold lisinopril Continue to monitor blood pressure 2D echo ordered. Await results. Consider outpatient stress testing Patient is currently stable from a cardiac standpoint Patient to follow up outpatient with Dr. Thorpe Nurse practitioner note has been reviewed by physician. Signing provider agrees with the documented findings, assessment, and plan of care. Objective - Vital Signs Vital signs: Vital Signs Temp 97.4 F L 06/08/22 07:00 Pulse 84 06/08/22 07:00 Resp 16 06/08/22 07:00 BP 112/76 06/08/22 07:00 Pulse Ox 99 06/08/22 07:00 FiO2 Intake & Output 06/07/22 06/08/22 06/08/22 18:59 06:59 18:59 Intake Total 1500 Balance 1500 Weight 56.699 kg Intake: Intake, IV Titration 1000 Amount Sodium Chloride 0.9% 1, 1000 000 ml @ 130 mls/hr IV . Q7H42M [facility] Rx#:[id number] Oral 500 Other: # Voids 1 - Labs CBC & Chem 7: 06/06/22 15:46 06/06/22 15:46 Labs: Abnormal Lab Results - Last 24 Hours (Table) 06/07/22 06/07/22 06/07/22 Range/Units 17:31 21:47 21:48 POC Glucose (mg/dL) 69 L 111 H (70-110) mg/dL Ur Leukocyte Esterase Small H (Negative) Microbiology - Last 24 Hours (Table) 06/06/22 15:46 Urine Culture - Final Urine,Clean Catch
[2022-06-08] MEDS ORDERED: MECLIZINE 12.5 MG TAB PO PRN (10:23)
--- NOTE | 2022-06-08 10:24 | P.CNNES ---
History of Present Illness Consult date: 06/08/22 Requesting physician: Chase Gililam Reason for Consult: dizziness, lupus History of Present Illness: This is a 56-year-old woman with medical history of recent diagnosis of lupus who presents complaining of multiple issues some including nausea vomiting dizziness and fatigue. Neurology is consulted for dizziness. Patient stated that she was recently diagnosed by rheumatology team with lupus and she is been on hydroxychloroquine and for the last 3 weeks. She's been having dizziness and nausea vomiting for the last 6 at least 6 weeks. She describes dizziness as the room spinning and mostly notices it when she moves around. She also has ringing in both ears. She has alleviation of dizziness when she rests. Denies any focal weakness, difficulty getting words out any visual disturbance. She's feeling generalized weak and fatigue. She denies any trauma to the head or any sickness prior to the event. He denies any history of stroke or seizure. Patient stated that since she got IV fluids she's been feeling drastically better Some other workup during his hospital visit consisted of: Patient is afebrile Her lowest pressure is 84/64 most recent one is 112/76. I personally reviewed her chemistry panel and had one episode of a POC glucose of 69. She had MRI of the brain with and without ordered by the primary team and is reported as no evidence of intracranial mass, acute/subacute infarct or abnormal enhancement. No significant change from prior. Trace left mastoid air cell effusion. I personally reviewed the MRI of the brain and I felt was unremarkable and there is no acute or subacute stroke or mass as reported. There is no enhancement that was appreciable. Review of Systems Review of system: The 12 point system was reviewed and apparent positive and n egative per HPI. Past Medical History Past Medical History: Diabetes Mellitus, Hyperlipidemia, Hypertension Additional Past Medical History / Comment(s): Lupus, Migraines, Colitis, Reynauds, Fibromialgia, History of Any Multi-Drug Resistant Organisms: None Reported Past Surgical History: Section, Cholecystectomy, Hysterectomy Additional Past Surgical History / Comment(s): CERVICAL FORAMINOTOMY, D & C X 2, C-SECT X2, EXPLORATORY LAP, COLONOSCOPY, LT CATARACT REMOVAL Past Anesthesia/Blood Transfusion Reactions: No Reported Reaction Past Psychological History: No Psychological Hx Reported Smoking Status: Never smoker Past Alcohol Use History: Rare Past Drug Use History: None Reported - Past Family History Father Family Medical History: Cancer Additional Family Medical History / Comment(s): Prostate cancer. Mother Family Medical History: Musculoskeletal Disorder Additional Family Medical History / Comment(s): Mother from MS. Medications and Allergies Home Medications Medication Instructions Recorded Confirmed Type Pravastatin Sodium [Pravachol] 40 mg PO DAILY 11/15/16 06/06/22 History lisinopriL [Prinivil] 10 mg PO DAILY 11/15/16 06/06/22 History Acetaminophen Tab [Tylenol Tab] 500 mg PO Q8H PRN 06/06/22 06/06/22 History DULoxetine HCL [Cymbalta] 60 mg PO DAILY 06/06/22 06/06/22 History Dulaglutide [Trulicity] 0.75 mg SQ TU 06/06/22 06/06/22 History Hydroxychloroquine Sulfate 200 mg PO DAILY 06/06/22 06/06/22 History [Plaquenil] Naltrexone HCl/Bupropion HCl 2 tab PO BID 06/06/22 06/06/22 History [Contrave ER 8-90 mg Tablet] Ondansetron Odt [Zofran Odt] 8 mg PO TID PRN 06/06/22 06/06/22 History SUMAtriptan succinate [Imitrex] 50 mg PO BID PRN 06/06/22 06/06/22 History Topiramate [Topamax] 50 mg PO DAILY 06/06/22 06/06/22 History Allergies Allergy/AdvReac Type Severity Reaction Status Date / Time sulfamethoxazole AdvReac Migraines Verified 06/06/22 16:48 [From Bactrim] trimethoprim [From Bactrim] AdvReac Migraines Verified 06/06/22 16:48 seasonal/environmental Allergy Wheezing Uncoded 06/06/22 16:48 Physical Examination - Vital Signs Vital Signs: Vital Signs Temp Pulse Pulse Resp BP BP BP 06/08/22 07:00 97.4 F L 84 16 112/76 06/08/22 03:30 97.8 F 79 16 109/71 06/07/22 20:00 87 16 06/07/22 19:24 98.0 F 87 16 97/63 06/07/22 15:00 98.4 F 82 16 94/58 06/07/22 14:00 20 06/07/22 12:09 98.1 F 75 20 91/61 06/07/22 11:38 101/77 06/07/22 11:33 99/72 06/07/22 11:30 87 20 107/75 06/07/22 11:28 107/75 Pulse Ox 06/08/22 07:00 99 06/08/22 03:30 98 06/07/22 20:00 06/07/22 19:24 96 06/07/22 15:00 98 06/07/22 14:00 06/07/22 12:09 95 06/07/22 11:38 06/07/22 11:33 06/07/22 11:30 99 06/07/22 11:28 Intake and Output 06/07/22 06/08/22 06/08/22 22:59 06:59 14:59 Intake Total 1000 500 236 Balance 1000 500 236 Intake: Intake, IV Titration 1000 Amount Sodium Chloride 0.9% 1, 1000 000 ml @ 130 mls/hr IV . Q7H42M [facility] Rx#:[id number] Oral 500 236 Other: # Voids 1 GENERAL: The patient is lying in bed and is not in acute distress. She appears pale. CHEST: The heart rate is regular rate rhythm. No murmurs to auscultation. -. LUNG: Clear to auscultation bilaterally no wheezing noted throughout. Not labored breathing. ABDOMEN/GI: Bowel sounds present in all 4 quadrants. No tenderness to palpation throughout. NEUROLOGICAL: Higher mental function: The patient is awake, alert, oriented to self, place and time. Patient is following commands. No aphasia and no neglect. Cranial nerves: The pupils are round, equal and reactive to light and accommodation. Visual hassan are full to confrontation throughout. Extraocular movement is intact no nystagmus is noted. Facial sensation is normal to touch throughout. The facial strength is normal throughout. Hearing is normal bilaterally to hand rub. Tongue is midline and moved [id number] without any difficulty. No dysarthria is noted. Shoulder shrug is normal bilaterally. Motor: Gait is normal. The strength is 5 over 5 throughout. Normal tone and bulk. Cerebellum: Normal finger to nose heel to chin bilaterally. Sensation: Sensation is normal to touch throughout. Reflexes (right/left): 2+ throughout. Plantars are downgoing bilaterally. Results - Laboratory Findings CBC and BMP: 06/06/22 15:46 06/06/22 15:46 Abnormal Lab Findings: Abnormal Labs 06/06/22 06/06/22 06/06/22 15:46 15:46 15:46 Neutrophils # 8.1 H Chloride 108 H Carbon Dioxide 20 L BUN 32 H Creatinine 1.29 H POC Glucose (mg/dL) Lipase 302 H Urine Appearance Cloudy H Urine Protein 1+ H Urine Ketones 2+ H Urine Blood Trace H Ur Leukocyte Esterase Small H Urine WBC 12 H Urine Bacteria Rare H Hyaline Casts 48 H Urine Mucus Many H 06/07/22 06/07/22 06/07/22 17:31 21:47 21:48 Neutrophils # Chloride Carbon Dioxide BUN Creatinine POC Glucose (mg/dL) 69 L 111 H Lipase Urine Appearance Urine Protein Urine Ketones Urine Blood Ur Leukocyte Esterase Small H Urine WBC Urine Bacteria Hyaline Casts Urine Mucus Assessment and Plan Assessment: Subacute vertigo (for at least 6 weeks) and seems likely peripheral vs hypovolemia. MRI Brain w/ and w/o is unremarkable. No focal deficits on exam---currently dizziness improved. Fatigue, generalized weakness with abdominal pain, nausea and vomiting. Hypertensive episode Recent diagnosis of lupus Way not Diabetes mellitus Hypertension Plan: For her fatigue, generalized weakness I ordered TSH, vitamin B12 and folate. Her migraine she is on Topamax 50 mg daily and if she continues to have migraine can be increased to 1 tablet twice a day. He is also on Imitrex 50 mg 1 tablet twice a day when necessary I started her on meclizine 12.5 mg 1 tablet 4 times a day when necessary for dizziness She continues to have dizziness recommend the patient to follow-up with ENT as an outpatient and consider stability rehab as an outpatient Consulted with physical and occupation therapy We'll defer the rest of the medical management to primary team The plan was discussed with the patient and her was at bedside as well as the patient nurse. Thank you for the consultation. Time with Patient: Greater than 30
[2022-06-08 11:34] VITALS: BMI 22.8
[2022-06-08 12:07] LABS: Glucose,Whole Blood 78 mg/dL (70-110)
[2022-06-08 12:18] LABS: African American GFR (CKD) >90 (>60 ml/min/1.73 sqM); Anion Gap 3 mmol/L; Blood Urea Nitrogen 10 mg/dL (7-17); Calcium 8.8 mg/dL (8.4-10.2); Carbon Dioxide 27 mmol/L (22-30); Chloride 112 mmol/L (98-107); Glucose 81 mg/dL (74-99); Non-African American GFR(CKD) 82 (>60 ml/min/1.73 sqM); Potassium 4.5 mmol/L (3.5-5.1); Sodium 142 mmol/L (137-145)
--- NOTE | 2022-06-08 13:07 | CA ---
Transthoracic Echo Report Name: Nat Izquierdo Age: 56 Gender: F : 1965 Exam Date: 06/07/2022 14:31 Exam Location: [facility] Ht (in): 62 Wt (lb): 125 Ordering Physician: Nargis Herrera Attending/Referring Phys: [id number], Sharon Aviation Technician [employer] Eden Coleman RDCS Procedure CPT: Indications: LV function Cardiac Hx: Technical Quality: Fair Contrast 1: Total Dose (mL): Contrast 2: Total Dose (mL): MEASUREMENTS (Male / Female) Normal Values 2D ECHO LV Diastolic Diameter PLAX 4.3 cm 4.2 - 5.9 / 3.9 - 5.3 cm LV Systolic Diameter PLAX 2.4 cm IVS Diastolic Thickness 0.9 cm 0.6 - 1.0 / 0.6 - 0.9 cm LVPW Diastolic Thickness 0.8 cm 0.6 - 1.0 / 0.6 - 0.9 cm LV Relative Wall Thickness 0.4 RV Internal Dim ED PLAX 4.2 cm LA Volume 33.5 cm??? 18 - 58 / 22 - 52 cm??? M-MODE Aortic Root Diameter MM 2.9 cm LA Systolic Diameter MM 4.0 cm LA Ao Ratio MM 1.4 AV Cusp Separation MM 2.0 cm DOPPLER AV Peak Velocity 137.9 cm/s AV Peak Gradient 7.6 mmHg LVOT Peak Velocity 112.6 cm/s LVOT Peak Gradient 5.1 mmHg MV Area PHT 4.1 cm??? Mitral E Point Velocity 100.1 cm/s Mitral A Point Velocity 78.2 cm/s Mitral E to A Ratio 1.3 MV Deceleration Time 184.0 ms MV E' Velocity 8.3 cm/s Mitral E to MV E' Ratio 12.0 TR Peak Velocity 245.0 cm/s TR Peak Gradient 24.0 mmHg Right Ventricular Systolic Press 29.0 mmHg FINDINGS Left Ventricle Normal Left ventricular size, wall thickness, systolic function with no obvious regional wall motion abnormalities. Normal Left ventricular diastolic filling pattern. Left ventricular ejection fraction is estimated at 55-60 %. Right Ventricle Mild right ventricular dilatation. Right ventricular systolic pressure within normal limits. Right Atrium Normal right atrial size. Left Atrium Normal left atrial size. Mitral Valve Structurally normal mitral valve. Trace mitral regurgitation. Aortic Valve Trileaflet aortic valve. No aortic valve stenosis or regurgitation. Tricuspid Valve Structurally normal tricuspid valve. Mild tricuspid regurgitation. Pulmonic Valve Trace pulmonic regurgitation. Pericardium No pericardial effusion. Aorta Normal size aortic root and proximal ascending aorta. CONCLUSIONS Normal left ventricular ejection fraction 55-60% Trace mitral regurgitation Mild tricuspid regurgitation No pericardial effusion Previewed by: Dr. Gennaro Thorpe DO (Electronically Signed) Final Date: 08 June 2022 13:06
--- NOTE | 2022-06-08 16:22 | P.PN ---
Progress Note - Text Progress Note Date: 06/08/22 Chief Complaint: Dizzy chest tightness This is a pleasant 56-year-old patient who follows with Dr. Rodas. 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 Craven. Patient had a unclear diagnosis of lupus in the past but this was confirmed 3 months ago. Chronic stable medical conditions include diabetes, fibromyalgia, hyperlipidemia, hypertension, migraines, hiatal hernia, chronic colitis, Raynaud's,. Patient is accompanied to the ER with her . For about 4 weeks patient started noticing that she is getting dizzy. More so when she stands up. Upon standing she may also get ringing in the ears also gets nausea. Some nausea vomiting also present with oral intake. No change in her bowel pattern which is somewhat irregular. Also congestive heart flashes feeling and episodes of perspiration. Patient has aches and pains in different joints and muscles. Does get short of breath on exertion. Also has a chest tightness. Does get intermittent headaches. No edema. Patient has Track with bloody vision. She takes Cymbalta for depression and anxiety. 06/08/2022: Feels better. Has been up to the bathroom. CT chest and MRI brain unremarkable. Oral intake bit better. With IV fluids renal function is normalized. At this point it is felt patient's old symptoms of from her lupus. Increase patient's activity and advance diet. Discussed with the patient has been. Active Medications Acetaminophen (Acetaminophen Tab 325 Mg Tab) 650 mg PO Q6HR PRN PRN Reason: Mild Pain or Fever > 100.5 Alprazolam (Alprazolam 0.25 Mg Tab) 0.25 mg PO Q6HR PRN PRN Reason: Anxiety Aspirin (Aspirin 81 Mg) 81 mg PO DAILY [facility] Last Admin: 06/08/22 08:26 Dose: 81 mg Calcium Carbonate/Glycine (Calcium Carbonate 500 Mg Chewable) 1,000 mg PO Q4HR PRN PRN Reason: Dyspepsia Dextrose/Water (Dextrose 50% Syringe 50 Ml) 25 ml IVP PER PROTOCOL PRN; Protocol PRN Reason: Hypoglycemia Dextrose/Water (Dextrose 50% Syringe 50 Ml) 50 ml IVP PER PROTOCOL PRN; Protocol PRN Reason: Hypoglycemia Duloxetine HCl (Duloxetine Hcl 60 Mg Capsule.) 60 mg PO DAILY [facility] Last Admin: 06/08/22 08:26 Dose: 60 mg Enoxaparin Sodium (Enoxaparin 40 Mg/0.4 Ml Syringe) 40 mg SQ DAILY [facility] Last Admin: 06/08/22 08:26 Dose: 40 mg Hydroxychloroquine Sulfate (Hydroxychloroquine Sulfate 200 Mg Tab) 200 mg PO DAILY [facility] Last Admin: 06/08/22 08:26 Dose: 200 mg Sodium Chloride (Saline 0.9%) 1,000 mls @ 130 mls/hr IV .Q7H42M [facility] Last Admin: 06/08/22 12:36 Dose: 130 mls/hr Insulin Aspart (Insulin Aspart (Novolog) 100 Unit/Ml Vial) 0 unit SQ AC-TID [facility]; Protocol Last Admin: 06/08/22 12:06 Dose: Not Given Lactulose (Lactulose 20 Gm/30 Ml Cup) 20 gm PO DAILY PRN PRN Reason: Constipation Meclizine HCl (Meclizine 12.5 Mg Tab) 12.5 mg PO QID PRN PRN Reason: Vertigo Last Admin: 06/08/22 12:06 Dose: 12.5 mg Naloxone HCl (Naloxone 0.4 Mg/Ml 1 Ml Vial) 0.2 mg IV Q2M PRN PRN Reason: Opioid Reversal Nitroglycerin (Nitroglycerin Sl Tabs 0.4 Mg Tab) 0.4 mg SUBLINGUAL Q5M PRN PRN Reason: Chest Pain Naltrexone Hcl/Bupropion Hcl [ Contrave Er 8-90 Mg Tablet] 1 Each Table 2 tab PO BID [facility] Last Admin: 06/08/22 08:27 Dose: Not Given Patient's Own ( Dulaglutide [ Trulicity] 0.75 Mg/0 .5 Ml Each) 0.75 mg SQ [facility] Ondansetron HCl (Ondansetron 4 Mg/2 Ml Vial) 4 mg IVP Q8HR PRN PRN Reason: Nausea And Vomiting Last Admin: 06/07/22 11:45 Dose: 4 mg Pravastatin Sodium (Pravastatin Sodium 40 Mg Tab) 40 mg PO DAILY [facility] Last Admin: 06/08/22 08:26 Dose: 40 mg Sumatriptan Succinate (Sumatriptan Succinate 50 Mg Tab) 50 mg PO BID PRN PRN Reason: Migraine Headache Last Admin: 06/07/22 18:14 Dose: 50 mg Temazepam (Temazepam 15 Mg Cap) 15 mg PO HS PRN PRN Reason: Insomnia Last Admin: 06/07/22 22:46 Dose: 15 mg Topiramate (Topiramate 25 Mg Tab) 50 mg PO DAILY [facility] Last Admin: 06/08/22 08:26 Dose: 50 mg Tramadol HCl (Tramadol 50 Mg Tab) 50 mg PO Q6H PRN PRN Reason: Moderate Pain (Scale 4 to 6) Last Admin: 06/07/22 22:46 Dose: 50 mg Past medical history to include: Diabetes, fibromyalgia, hyperlipidemia, hypertension, diabetes type 2, lupus, migraines, hiatal hernia, colitis, Raynaud's, right eye cataract, anxiety depression Social history: . No smoking or alcohol. Works as a career development counselor. Family history: Prostate cancer Physical examination: VITAL SIGNS: 97.7, 90, 20, 102/67, 97% room air GENERAL: BMI 22.9, appears better EYES: Pupils equal. Conjunctiva normal. HEENT: External appearance of nose and ears normal, oral cavity grossly normal. NECK: JVD not raised; masses not palpable. HEART: First and second heart sounds are normal; no edema. LUNGS: Respiratory rate normal; clear to auscultation. ABDOMEN: Soft, nontender, liver spleen not palpable, no masses palpable. PSYCH: [Alert and oriented x3; mood and affect anxious l. MUSCULOSKELETAL:No Clubbing/cyanosis;muscles-grossly intact INVESTIGATIONS, reviewed in the clinical context: 2-D echocardiogram: EF 55-60%. Brain MRI: Unremarkable CT chest high resolution: Possible atelectasis Ultrasound: Complex heterogenous area seen at mid 3 cm x 2.6 cm x 3.5 cm. White count 10.5 hemoglobin 15.6 platelets 326 progression 3.9 BUN 32 creatinine 1.29 Troponin I less than 0.0123 LDL 93 UA positive for 2+ ketones, protein 1+, WBC 12 EKG tracing personally reviewed by me-normal sinus rhythm nonspecific T-wave changes Chest x-ray film personally reviewed by me-possible some interstitial prominence Assessment and plan: -Patient presents with multiple symptoms. Dizziness for last 4 weeks. Nausea vomiting. Chest tightness shortness of breath with exertion. Several of these symptoms could be explained by lupus itself. We have to dissect out individual symptoms and work with the same. 2-D echocardiogram,. High resolution CT chest,. MRI of the brain.-All unremarkable -Acute kidney injury, prerenal from dehydration from nausea vomiting Corrected with IV fluids -Lupus. Patient does follow Dr. Craven as outpatient. plaquenil -Diabetes mellitus type 2 Continue Trulicity. Follow Accu-Cheks -Essential hypertension Prinivil -Anxiety depression otherwise specified Cymbalta -Hyperlipidemia Pravachol Patient diet will be advanced. CT chest rule out PE. Increase activity. Like to presentation from lupus. Follow up with Dr. Craven.
[2022-06-08 17:18] LABS: Glucose,Whole Blood 66 mg/dL (70-110)
[2022-06-08 17:41] LABS: Glucose,Whole Blood 74 mg/dL (70-110)
[2022-06-08 20:22] LABS: Glucose,Whole Blood 92 mg/dL (70-110)
[2022-06-08] MEDS: traMADol 50 MG TAB PO PRN (20:52)
[2022-06-08] MEDS: TEMAZEPAM 15 MG CAP PO PRN (20:52)
--- NOTE | 2022-06-08 22:37 | CT ---
EXAMINATION TYPE: CT angio chest DATE OF EXAM: 06/08/2022 COMPARISON: None HISTORY: SOB, chest pain, r/o PE CT DLP: 247.2 mGycm Automated exposure control for dose reduction was used. CONTRAST: Performed with IV Contrast, patient injected with 80 mL of Isovue 370. There are Three-D postprocessed images. Images obtained from the thoracic inlet to the diaphragm with the IV contrast. There is no mediastinal adenopathy. Thoracic aorta is intact. Heart size is normal. No pericardial ef fusion. No pleural effusion. There is normal contrast opacification of the pulmonary arteries. No haylie ling defect. The lungs are clear of infiltrate. No evidence of a pulmonary mass. There is minimal subsegmental ate lectasis at the posterior lung bases. The thoracic spine is intact. Sternum is intact. No rib fracture. IMPRESSION: No evidence of pulmonary embolism. No suspicious pulmonary mass.
[2022-06-09 06:27] LABS: Glucose,Whole Blood 72 mg/dL (70-110)
[2022-06-09] MEDS: INSULIN ASPART (NovoLOG) 100 UNIT/ML VIAL SQ SCH (06:29)
[2022-06-09] MEDS: ASPIRIN 81 MG PO SCH (08:41)
[2022-06-09] MEDS: PRAVASTATIN SODIUM 40 MG TAB PO SCH (08:41)
[2022-06-09] MEDS: HYDROXYCHLOROQUINE SULFATE 200 MG TAB PO SCH (08:41)
[2022-06-09] MEDS: TOPIRAMATE 25 MG TAB PO SCH (08:41)
[2022-06-09] MEDS: ENOXAPARIN 40 MG/0.4 ML SYRINGE SQ SCH (08:42)
[2022-06-09] MEDS: DULoxetine HCL 60 MG CAPSULE.DR PO SCH (08:42)
[2022-06-09 08:45] VITALS: BP 100/66; PULSE 76; RESP 16; TEMP 98.1
--- NOTE | 2022-06-09 11:04 | P.PN ---
Subjective Progress Note Date: 06/09/22 HISTORY OF PRESENT ILLNESS: This is a 56-year-old female with a past medical history significant for hypertension, hyperlipidemia, diabetes, and lupus. Patient does not follow with a information systems specialist. We have been asked to see the patient in consultation for chest pain. Patient examined at the bedside. Patient states over the past few weeks she has been feeling dizzy. She states she is unable to stand for longer than 15 minutes without feeling like she is going to pass out. She states that other day she had to use a stool to make breakfast because the dizziness was so bad. She reports that her ears get very hot and she becomes nauseated. She does report over the past 2 days she has been throwing up. She states that she threw up 3 times yesterday. She also reports having some intermittent shortness of breath over the past 7-10 days. She states she has been using her son's inhaler which has been helping. She reports having some chest discomfort when she feels short of breath. She reports having a fever at home but states this is not unusual for her secondary to her lupus. The patient was noted to be hypotensive with a systolic blood pressure in the 80s and 90s. She is prescribed lisinopril 10 mg on an outpatient basis. The patient does report that she has lost almost 60 pounds over the past year. She reports a family history of coronary artery disease and states her dad had a DE at the age of 39. * EKG reveals sinus mechanism with no signs of acute ischemia * Chest xray negative for acute process * Laboratory data: WBC 10.5. Hemoglobin 15.6. Platelet count 326. D-dimer 0.17. Sodium 141. Potassium 3.9. BUN 32. Creatinine 1.29. Troponin negat jim 3. ProBNP 33. Lipase 302. * Current home cardiac medications include lisinopril 10 mg daily and Pravachol 40 mg daily 06/08/2022 Patient examined this morning at the bedside. Patient denies chest pain or pressure. Denies SOB. She denies any further episodes of nausea or vomiting. She has been up ambulating to the bathroom without dizziness. SBP currently in the 90-100s. She reports having a headache that started yesterday when she received nitro paste. 06/09/2022 Patient examined this morning at the bedside. Patient denies chest pain or pressure. She denies shortness of breath. Echocardiogram completed revealing ejection fraction 55-60%, trace mitral regurgitation, mild tricuspid regurgitation. PHYSICAL EXAM: VITAL SIGNS: Reviewed. GENERAL: Well-developed in no acute distress. HEENT: Head is normocephalic. Pupils are equal, round. Sclerae anicteric. Mucous membranes of the mouth are moist. Neck supple. No JVD or thyromegaly LUNGS: Respirations even and unlabored. Lungs essentially clear to auscultation bilaterally. HEART: Regular rate and rhythm. S1 and S2 heard. ABDOMEN: Soft. Nondistended. Nontender. EXTREMITIES: Normal range of motion. No clubbing or cyanosis. Peripheral pulses intact. No lower extremity edema NEUROLOGIC: Awake and alert. Oriented x 3. ASSESSMENT: Dizziness, may be secondary to hypotension Nausea and vomiting Decreased oral intake Mild acute kidney injury Hypertension, currently hypotensive Shortness of breath, etiology unclear Hyperlipidemia Diabetes Lupus PLAN: Continue to hold lisinopril at discharge Consider outpatient stress testing Patient is currently stable from a cardiac standpoint Patient to follow up outpatient with Dr. Thorpe We will sign off. Please reconsult if needed. Nurse practitioner note has been reviewed by physician. Signing provider agrees with the documented findings, assessment, and plan of care. Objective - Vital Signs Vital signs: Vital Signs Temp 98.1 F 06/09/22 07:15 Pulse 76 06/09/22 08:00 Resp 16 06/09/22 08:00 BP 100/66 06/09/22 07:15 Pulse Ox 98 06/09/22 07:15 FiO2 Intake & Output 06/08/22 06/09/22 06/09/22 18:59 06:59 18:59 Intake Total 812 1250 Balance 812 1250 Weight 56.699 kg Intake: Intake, IV Titration 1250 Amount Sodium Chloride 0.9% 1, 1250 000 ml @ 130 mls/hr IV . Q7H42M [facility] Rx#:[id number] Oral 812 Other: Voiding Method Toilet Toilet Toilet # Voids 3 - Labs CBC & Chem 7: 06/06/22 15:46 06/08/22 11:10 Labs: Abnormal Lab Results - Last 24 Hours (Table) 06/07/22 06/08/22 06/08/22 Range/Units 05:10 11:10 17:16 Chloride 112 H (98-107) mmol/L POC Glucose (mg/dL) 66 L (70-110) mg/dL Vitamin B12 1117.0 H (200.0-944.0) pg/mL
--- NOTE | 2022-06-09 16:17 | P.DS ---
Providers Date of admission: 06/06/22 18:13 Expected date of discharge: 06/09/22 Attending physician: Chase Gilliam Consults: 06/07/22 16:09 Consult Physician Routine Consulting Provider: Claudio Rico Consult Reason/Comments: Dizziness, lupus Do you want consulting provider notified?: Yes Primary care physician: [facility] Course: Chief Complaint: Dizzy chest tightness This is a pleasant 56-year-old patient who follows with Dr. Rodas. 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 Craven. Patient had a unclear diagnosis of lupus in the past but this was confirmed 3 months ago. Chronic stable medical conditions include diabetes, fibromyalgia, hyperlipidemia, hypertension, migraines, hiatal hernia, chronic colitis, Raynaud's,. Patient is accompanied to the ER with her . For about 4 weeks patient started noticing that she is getting dizzy. More so when she stands up. Upon standing she may also get ringing in the ears also gets nausea. Some nausea vomiting also present with oral intake. No change in her bowel pattern which is somewhat irregular. Also congestive heart flashes feeling and episodes of perspiration. Patient has aches and pains in different joints and muscles. Does get short of breath on exertion. Also has a chest tightness. Does get intermittent headaches. No edema. Patient has Track with bloody vision. She takes Cymbalta for depression and anxiety. 06/08/2022: Feels better. Has been up to the bathroom. CT chest and MRI brain unremarkable. Oral intake bit better. With IV fluids renal function is normalized. At this point it is felt patient's old symptoms of from her lupus. Increase patient's activity and advance diet. Discussed with the patient has been. 06/09/2022: Doing well. Did ambulate in the hallway. No dizziness. Admitted which improved. Discussed with the patient has been at the bedside. Computed tomography scan chest negative for PE. Renal function is normalized. Questions answered. Results discussed. Patient to follow with Dr. Craven. Predominant symptoms felt to be from acute kidney injury and dehydration. Discussion and discharge planning more than 35 minutes Past medical history to include: Diabetes, fibromyalgia, hyperlipidemia, hypertension, diabetes type 2, lupus, migraines, hiatal hernia, colitis, Raynaud's, right eye cataract, anxiety depression Social history: . No smoking or alcohol. Works as a career services representative. Family history: Prostate cancer Physical examination: VITAL SIGNS: 98.1, 76, 16, 100/66, 98% room air GENERAL: BMI 22.9, appears better EYES: Pupils equal. Conjunctiva normal. HEENT: External appearance of nose and ears normal, oral cavity grossly normal. NECK: JVD not raised; masses not palpable. HEART: First and second heart sounds are normal; no edema. LUNGS: Respiratory rate normal; clear to auscultation. ABDOMEN: Soft, nontender, liver spleen not palpable, no masses palpable. PSYCH: [Alert and oriented x3; mood and affect normal. MUSCULOSKELETAL:No Clubbing/cyanosis;muscles-grossly intact INVESTIGATIONS, reviewed in the clinical context: CT chest PE protocol: Negative for PE 2-D echocardiogram: EF 55-60%. Brain MRI: Unremarkable CT chest high resolution: Possible atelectasis Ultrasound: Complex heterogenous area seen at mid 3 cm x 2.6 cm x 3.5 cm. White count 10.5 hemoglobin 15.6 platelets 326 progression 3.9 BUN 32 creatinine 1.29 Troponin I less than 0.0123 LDL 93 UA positive for 2+ ketones, protein 1+, WBC 12 EKG tracing personally reviewed by me-normal sinus rhythm nonspecific T-wave changes Chest x-ray film personally reviewed by me-possible some interstitial prominence Assessment and plan: -Acute kidney injury, prerenal from dehydration from nausea vomiting: Resolved Corrected with IV fluids -Dehydration from poor oral intake: Improved -Lupus. Patient does follow Dr. Craven as outpatient. plaquenil -Diabetes mellitus type 2 [facility] Follow Accu-Cheks -Essential hypertension Prinivil -Anxiety depression otherwise specified Cymbalta -Hyperlipidemia Pravachol Disposition: Home Plan - Discharge Summary Discharge Rx Participant: No New Discharge Prescriptions: New Aspirin 81 mg PO DAILY tab Continue Pravastatin Sodium [Pravachol] 40 mg PO DAILY Acetaminophen Tab [Tylenol] 500 mg PO Q8H PRN PRN Reason: Fever And/ Or Pain Hydroxychloroquine Sulfate [Plaquenil] 200 mg PO DAILY Ondansetron Odt [Zofran ODT] 8 mg PO TID PRN PRN Reason: Nausea And Vomiting SUMAtriptan succinate [Imitrex] 50 mg PO BID PRN PRN Reason: Migraine Headache Dulaglutide [Trulicity] 0.75 mg SQ TU DULoxetine HCL [Cymbalta] 60 mg PO DAILY Naltrexone HCl/Bupropion HCl [Contrave ER 8-90 mg Tablet] 2 tab PO BID Topiramate [Topamax] 50 mg PO DAILY Discontinued lisinopriL [Prinivil] 10 mg PO DAILY Discharge Medication List Pravastatin Sodium [Pravachol] 40 mg PO DAILY 11/15/16 [History] Acetaminophen Tab [Tylenol] 500 mg PO Q8H PRN 06/06/22 [History] DULoxetine HCL [Cymbalta] 60 mg PO DAILY 06/06/22 [History] Dulaglutide [Trulicity] 0.75 mg SQ TU 06/06/22 [History] Hydroxychloroquine Sulfate [Plaquenil] 200 mg PO DAILY 06/06/22 [History] Naltrexone HCl/Bupropion HCl [Contrave ER 8-90 mg Tablet] 2 tab PO BID 06/06/22 [History] Ondansetron Odt [Zofran ODT] 8 mg PO TID PRN 06/06/22 [History] SUMAtriptan succinate [Imitrex] 50 mg PO BID PRN 06/06/22 [History] Topiramate [Topamax] 50 mg PO DAILY 06/06/22 [History] Aspirin 81 mg PO DAILY tab 06/09/22 [Rx] Follow up Appointment(s)/Referral(s): Gennaro Thorpe DO [STAFF PHYSICIAN] - 1 Week (cardiology will call you to set up an appointment ) Moe Rodas MD [Primary Care Provider] - 1-2 days Roseann Craven MD [STAFF PHYSICIAN] - 1 Week Patient Instructions/Handouts: Chest Pain (GEN) Activity/Diet/Wound Care/Special Instructions: admittted : Jun 06 -2021 discharged -jun 09 2021 return to work - Jun 12, 2021 Discharge Disposition: HOME SELF-CARE
--- NOTE | 2022-06-09 16:33 | P.PN ---
Subjective Progress Note Date: 06/09/22 The patient seen at bedside and she is doing better today compared to yesterday. She denies of any further dizziness. Objective - Vital Signs Vital signs: Vital Signs Temp 98.1 F 06/09/22 07:15 Pulse 76 06/09/22 08:00 Resp 16 06/09/22 08:00 BP 100/66 06/09/22 07:15 Pulse Ox 98 06/09/22 07:15 FiO2 Intake & Output 06/08/22 06/09/22 06/09/22 18:59 06:59 18:59 Intake Total 812 1250 Balance 812 1250 Weight 56.699 kg Intake: Intake, IV Titration 1250 Amount Sodium Chloride 0.9% 1, 1250 000 ml @ 130 mls/hr IV . Q7H42M [facility] Rx#:[id number] Oral 812 Other: Voiding Method Toilet Toilet Toilet # Voids 3 - Exam GENERAL: The patient is lying in bed and is not in acute distress. She appears pale. NEUROLOGICAL: Higher mental function: The patient is awake, alert, oriented to self, place and time. Patient is following commands. No aphasia and no neglect. Cranial nerves: The pupils are round, equal and reactive to light and accommodation. Visual hassan are full to confrontation throughout. Extraocular movement is intact no nystagmus is noted. Facial sensation is normal to touch throughout. The facial strength is normal throughout. Hearing is normal bilaterally to hand rub. Tongue is midline and moved [id number] without any difficulty. No dysarthria is noted. Shoulder shrug is normal bilaterally. Motor: The strength is 5 over 5 throughout. Normal tone and bulk. Cerebellum: Normal finger to nose heel to chin bilaterally. Sensation: Sensation is normal to touch throughout. Reflexes (right/left): 2+ throughout. Plantars are downgoing bilaterally. Some other workup during his hospital visit consisted of: Vitamin B12 is 1117 TSH is 3.80 Serum folate is 11.90 I personally reviewed her chemistry panel and had one episode of a POC glucose of 69. She had MRI of the brain with and without ordered by the primary team and is reported as no evidence of intracranial mass, acute/subacute infarct or abnormal enhancement. No significant change from prior. Trace left mastoid air cell effusion. I personally reviewed the MRI of the brain and I felt was unrem arkable and there is no acute or subacute stroke or mass as reported. There is no enhancement that was appreciable. - Labs CBC & Chem 7: 06/06/22 15:46 06/08/22 11:10 Labs: Abnormal Lab Results - Last 24 Hours (Table) 06/07/22 06/08/22 Range/Units 05:10 17:16 POC Glucose (mg/dL) 66 L (70-110) mg/dL Vitamin B12 1117.0 H (200.0-944.0) pg/mL Assessment and Plan Assessment: Subacute vertigo (for at least 6 weeks) and seems likely peripheral vs hypovolemia. MRI Brain w/ and w/o is unremarkable. No focal deficits on exam---currently dizziness improved. Fatigue, generalized weakness with abdominal pain, nausea and vomiting. Hypertensive episode Recent diagnosis of lupus Way not Diabetes mellitus Hypertension Plan: Her migraine she is on Topamax 50 mg daily and if she continues to have migraine can be increased to 1 tablet twice a day. He is also on Imitrex 50 mg 1 tablet twice a day when necessary Continue meclizine 12.5 mg 1 tablet 4 times a day when necessary for dizziness She continues to have dizziness recommend the patient to follow-up with ENT as an outpatient and consider stability rehab as an outpatient Physical and occupation therapy We'll defer the rest of the medical management to primary team There is no further neurological workup. Time with Patient: Less than 30
[2022-06-13] MEDS ORDERED: PATIENT'S OWN (Dulaglutide [Trulicity] 0.75 MG/0.5 ML Each) SQ SCH (09:00)
--- NOTE | 2022-06-24 09:15 | CDI ---
Outpatient Documentation Clarification Form Date: 06/23/2022 CDS/Needle Straightener Name: Sandy Craig Phone: If you have question, contact Ila Reddy, Coding Auto Tester at [phone] Patient Name: Nat Izquierdo Admit Date: 06/06/22 Discharge Date: 06/09/22 ATTENTION: HIM Coding Staff appreciate your assistance in clarifying documentation. Please respond to the clarification below the line at the bottom and electronically sign. HIM Coding staff will review the response and follow-up if needed. Please note: Queries are made part of the Legal Health Record. If you have any questions, please contact the author of this message via ITS or call the Thermometer Production Worker. Dr. Gilliam, In order to capture accurate diagnosis for this account, please clarify the following. This patient has lupus documented all through the chart, unfortunately the type is not documented. There is no default code for lupus nos so please clarify the specific type of lupus so that the appropriate code can be assigned. Thank you for your time! Unable to determine MTDD
== END 2022-06-09 11:30 | disposition home or self-care (01) ==
LOC: EC 14:53 → 6NMEDSUR 18:13
PROVIDERS: ADMIT Hospitalist; ATTEND Hospitalist
DX: R07.89 Other chest pain (principal); N17.9 Acute kidney failure, unspecified; E86.0 Dehydration; M32.9 Systemic lupus erythematosus, unspecified; I95.9 Hypotension, unspecified; I07.1 Rheumatic tricuspid insufficiency; E11.9 Type 2 diabetes mellitus without complications; G43.909 Migraine, unspecified, not intractable, without status migrainosus; I10 Essential (primary) hypertension; R91.8 Other nonspecific abnormal finding of lung field; R06.02 Shortness of breath; I73.00 Raynaud's syndrome without gangrene; K44.9 Diaphragmatic hernia without obstruction or gangrene; E78.5 Hyperlipidemia, unspecified; H93.13 Tinnitus, bilateral; M79.7 Fibromyalgia; F32.A Depression, unspecified; F41.9 Anxiety disorder, unspecified; Z79.85 Long-term (current) use of injectable non-insulin antidiabetic drugs; Z79.899 Other long term (current) drug therapy; Z88.1 Allergy status to other antibiotic agents; Z88.2 Allergy status to sulfonamides; Z91.048 Other nonmedicinal substance allergy status; Z87.19 Personal history of other diseases of the digestive system; Z90.49 Acquired absence of other specified parts of digestive tract; Z90.710 Acquired absence of both cervix and uterus; Z98.891 History of uterine scar from previous surgery; Z98.42 Cataract extraction status, left eye; Z98.890 Other specified postprocedural states; Z82.49 Family history of ischemic heart disease and other diseases of the circulatory system; Z80.0 Family history of malignant neoplasm of digestive organs; Z82.0 Family history of epilepsy and other diseases of the nervous system
CPT/HCPCS: 96361 ×3; 96372 ×3; 96374; 96375; 99285; 36415; 94760 ×2; 93005; 93306; 97161; 85379; 83880; 80061; 80053; 80048; 84443; 82533; 82607; 82150; 82746; 83690; 83735; 84484; 85025; 85610; 85730; 81001 ×2; 87086; 71046; 76770; 71250; 71275; 70553; G0378 ×4; J2405; J1650 ×3; J1885; Q9967

== ENCOUNTER 2022-08-18 14:31 | Emergency (ER) | payer OTHER ==
[2022-08-18 14:54] VITALS: RESP 18
[2022-08-18 14:55] VITALS: TEMP 98.2
[2022-08-18] MEDS ORDERED: SODIUM CHLORIDE 0.9% 500 ML 500 ML IV STA (16:15)
[2022-08-18 16:34] LABS: Basophils # (A) 0.1 k/uL (0-0.2); Basophils % (A) 0 %; Eosinophils # (A) 0.1 k/uL (0-0.7); Eosinophils % (A) 1 %; HCT 47.2 % (34.0-46.0); HGB 15.5 gm/dL (11.4-16.0); Lymphocytes # (A) 1.2 k/uL (1.0-4.8); Lymphocytes % (A) 7 %; MCH 30.5 pg (25.0-35.0); MCHC 32.8 g/dL (31.0-37.0); Mean Platelet Volume 7.6; Monocytes # (A) 0.8 k/uL (0-1.0); Monocytes % (A) 5 %; Neutrophils # (A) 14.5 k/uL (1.3-7.7); Neutrophils % (A) 87 %; Platelet Count 327 k/uL (150-450); RBC 5.08 m/uL (3.80-5.40); RDW 11.7 % (11.5-15.5); WBC 16.7 k/uL (3.8-10.6)
--- NOTE | 2022-08-18 16:38 | ED ---
Abdominal Pain HPI - General Chief Complaint: Abdominal Pain Stated Complaint: abd pain Time Seen by Provider: 08/18/22 16:09 Source: patient, EMS Mode of arrival: EMS Limitations: no limitations - History of Present Illness Initial Comments: Patient is a 56-year-old female presenting with chief complaint of nausea and vomiting. Patient states that today she had a very sudden onset episode of nausea, vomiting, diarrhea. Patient states that during the episode she broke out into cold sweating was experiencing diffuse abdominal cramping. Patient eventually a family member called EMS, states that symptoms improved when she was given Zofran and Toradol. States that her nausea is improved, however she is continuing to have right upper quadrant pain. Patient has surgical history of cholecystectomy. Patient does have a history of lupus and has started a new injection. No current chest pain, shortness of breath, palpitations, weakness, dizziness, headache, dysuria, hematuria, hematochezia, melena, fever, chills, flank pain. - Related Data Home Medications Medication Instructions Recorded Confirmed Pravastatin Sodium [Pravachol] 40 mg PO DAILY 11/15/16 08/18/22 Acetaminophen Tab [Tylenol] 500 mg PO Q8H PRN 06/06/22 08/18/22 DULoxetine HCL [Cymbalta] 60 mg PO DAILY 06/06/22 08/18/22 Dulaglutide [Trulicity] 0.75 mg SQ TU 06/06/22 08/18/22 Hydroxychloroquine Sulfate 200 mg PO DAILY 06/06/22 08/18/22 [Plaquenil] Naltrexone HCl/Bupropion HCl 2 tab PO BID 06/06/22 08/18/22 [Contrave ER 8-90 mg Tablet] Ondansetron Odt [Zofran ODT] 8 mg PO TID PRN 06/06/22 08/18/22 SUMAtriptan succinate [Imitrex] 50 mg PO BID PRN 06/06/22 08/18/22 Topiramate [Topamax] 50 mg PO DAILY 06/06/22 08/18/22 Cholecalciferol [Vitamin D3 (25 25 mcg PO DAILY 08/18/22 08/18/22 Mcg = 1000 Iu)] lisinopriL [Zestril] 10 mg PO DAILY 08/18/22 08/18/22 Previous Rx's Medication Instructions Recorded Aspirin 81 mg PO DAILY tab 06/09/22 Ondansetron Odt [Zofran Odt] 4 mg PO Q8HR PRN #20 tab 08/18/22 Allergies Allergy/AdvReac Type Severity Reaction Status Date / Time sulfamethoxazole AdvReac Migraines Verified 08/18/22 15:53 [From Bactrim] trimethoprim [From Bactrim] AdvReac Migraines Verified 08/18/22 15:53 seasonal/environmental Allergy Wheezing Uncoded 06/06/22 16:48 Review of Systems ROS Statement: Those systems with pertinent positive or pertinent negative responses have been documented in the HPI. ROS Other: All systems not noted in ROS Statement are negative. Past Medical History Past Medical History: Diabetes Mellitus, Hyperlipidemia, Hypertension Additional Past Medical History / Comment(s): Lupus, Migraines, Colitis, Reynauds, Fibromialgia, History of Any Multi-Drug Resistant Organisms: None Reported Past Surgical History: Section, Cholecystectomy, Hysterectomy Additional Past Surgical History / Comment(s): CERVICAL FORAMINOTOMY, D & C X 2, C-SECT X2, EXPLORATORY LAP, COLONOSCOPY, LT CATARACT REMOVAL Past Anesthesia/Blood Transfusion Reactions: No Reported Reaction Past Psychological History: No Psychological Hx Reported Smoking Status: Never smoker Past Alcohol Use History: Rare Past Drug Use History: None Reported - Past Family History Father Family Medical History: Cancer Additional Family Medical History / Comment(s): Prostate cancer. Mother Family Medical History: Musculoskeletal Disorder Additional Family Medical History / Comment(s): Mother from [place]. General Exam Limitations: no limitations General appearance: alert, in no apparent distress Head exam: Present: atraumatic, normocephalic, normal inspection Eye exam: Present: normal appearance Neck exam: Present: normal inspection, full ROM Respiratory exam: Present: normal lung sounds bilaterally. Absent: respiratory distress, wheezes, rales, rhonchi, stridor Cardiovascular Exam: Present: regular rate, normal rhythm, normal heart sounds. Absent: systolic murmur, diastolic murmur, rubs, gallop, clicks GI/Abdominal exam: Present: soft. Absent: distended, tenderness, guarding, rebound, rigid Neurological exam: Present: alert, oriented X3, CN II-XII intact Psychiatric exam: Present: normal affect, normal mood Skin exam: Present: warm, dry, intact, normal color. Absent: rash Course Vital Signs 08/18/22 08/18/22 14:51 17:36 Temperature 98.2 F Pulse Rate 100 81 Respiratory 18 18 Rate Blood Pressure 111/84 104/62 O2 Sat by Pulse 98 96 Oximetry Medical Decision Making - Medical Decision Making Was pt. sent in by a medical professional or institution (CANDICE Renee, REGISTERED PHLEBOTOMIST PART TIME, urgent care, hospital, or prison...) When possible be specific @ -No Did you speak to anyone other than the patient for history (EMS, parent, family, police, friend...)? What history was obtained from this source @ -No Did you review nursing and triage notes (agree or disagree)? Why? @ -I reviewed and agree with nursing and triage notes Were old charts reviewed (outside hosp., previous admission, EMS record, old EKG, old radiological studies, urgent care reports/EKG's, prison records)? Report findings @ -No old charts were reviewed Differential Diagnosis (chest pain, altered mental status, abdominal pain women, abdominal pain men, vaginal bleeding, weakness, fever, dyspnea, syncope, headache, dizziness, GI bleed, back pain, seizure, CVA, palpatations, mental health, musculoskeletal)? @ -MDM Differential Abdominal Pain Women: Appendicitis, Cholecystitis, diverticulosis, ischemic bowel, pancreatitis, hepatitis, UTI, gastroenteritis, AAA, incarcerated hernia, bowel obstruction, constipation, inflammatory bowel, hepatitis, peptic ulcer disease, splenic infarction, perforated viscus, vulvitis, ovarian torsion, PID, kidney stone, placenta abruption... This is not meant to be an all-inclusive list EKG interpreted by me (3pts min.). @ -Sinus rhythm ventricular rate 81. WA interval 138. QRS 82. QT 365. QTc 42. No ischemic changes. X-rays interpreted by me (1pt min.). @ -None done CT interpreted by me (1pt min.). @ -None done U/S interpreted by me (1pt. min.). @ -None done What testing was considered but not performed or refused? (CT, X-rays, U/S, labs)? Why? @ -None What meds were considered but not given or refused? Why? @ -None Did you discuss the management of the patient with other professionals (professionals i.e. Dr., PA, REGISTERED PHLEBOTOMIST PART TIME, lab, RT, psych nurse, certified social workers in health care, brush operator, teacher, police officer, caser in)? Give summary @ -No Was smoking cessation discussed for >3mins.? @ -No Was critical care preformed (if so, how long)? @ -No Were there social determinants of health that impacted care today? How? (Homelessness, low income, unemployed, alcoholism, drug addiction, transportation, low edu. Level, literacy, decrease access to med. care, fci, rehab)? @ -No Was there de-escalation of care discussed even if they declined (Discuss DNR or withdrawal of care, Hospice)? DNR status @ -No What co-morbidities impacted this encounter? (DM, HTN, Smoking, COPD, CAD, Cancer, CVA, ARF, Chemo, Hep., AIDS, mental health diagnosis, sleep apnea, morbid obesity)? @ -None Was patient admitted / discharged? Hospital course, mention meds given and route, prescriptions, significant lab abnormalities, going to OR and other pertinent info. @ -Patient is a 56-year-old female presenting with chief complaint of nausea, vomiting, diarrhea that occurred today. She admits to cramping pain in the right upper quadrant, patient has history of cholecystectomy. Patient was given Zofran and Toradol by EMS which has improved her symptoms. Lab work shows CBC 16.7, likely reactive. BUN 20 and 1+ ketones, likely due to dehydration patient is receiving IV fluids. EKG shows no ischemic changes and troponin is less than 0.012. Urine shows signs of contamination, will be sent for culture. HCG is negative. Patient is negative for influenza, RSV, and Covid. On reassessment patient is resting comfortably. I educated patient on today's findings, patient feels well for discharge home at this time and is agreeable with this plan. Follow-up with PCP. Report back to ER with any new or worsening symptoms. Di scussed return parameters and answered all questions. Patient conveyed verbal understanding and agreed to the plan. I discussed this case in detail with my attending Dr. Farfan Undiagnosed new problem with uncertain prognosis? @ -No Drug Therapy requiring intensive monitoring for toxicity (Heparin, Nitro, Insulin, Cardizem)? @ -No Were any procedures done? @ -No Diagnosis/symptom? @ -Nausea vomiting and diarrhea Acute, or Chronic, or Acute on Chronic? @ -Acute Uncomplicated (without systemic symptoms) or Complicated (systemic symptoms)? @ -Uncomplicated Side effects of treatment? @ -No Exacerbation, Progression, or Severe Exacerbation? @ -No Poses a threat to life or bodily function? How? (Chest pain, [place], [place], pneumonia, PE, COPD, DKA, ARF, appy, cholecystitis, CVA, Diverticulitis, Homicidal, Suicidal, threat to staff... and all critical care pts) @ -No - Lab Data Result diagrams: 08/18/22 16:19 08/18/22 16:19 Lab Results 08/18/22 08/18/22 08/18/22 Range/Units 16:19 16:19 16:19 WBC 16.7 H (3.8-10.6) k/uL RBC 5.08 (3.80-5.40) m/uL Hgb 15.5 (11.4-16.0) gm/dL Hct 47.2 H (34.0-46.0) % MCV 93.0 (80.0-100.0) fL MCH 30.5 (25.0-35.0) pg MCHC 32.8 (31.0-37.0) g/dL RDW 11.7 (11.5-15.5) % Plt Count 327 (150-450) k/uL MPV 7.6 Neutrophils % 87 % Lymphocytes % 7 % Monocytes % 5 % Eosinophils % 1 % Basophils % 0 % Neutrophils # 14.5 H (1.3-7.7) k/uL Lymphocytes # 1.2 (1.0-4.8) k/uL Monocytes # 0.8 (0-1.0) k/uL Eosinophils # 0.1 (0-0.7) k/uL Basophils # 0.1 (0-0.2) k/uL PT 10.6 (9.0-12.0) sec INR 1.0 (<1.2) APTT 21.3 L (22.0-30.0) sec Sodium (137-145) mmol/L Potassium (3.5-5.1) mmol/L Chloride (98-107) mmol/L Carbon Dioxide (22-30) mmol/L Anion Gap mmol/L BUN (7-17) mg/dL Creatinine (0.52-1.04) mg/dL Est GFR (CKD-EPI)AfAm (>60 ml/min/1.73 sqM) Est GFR (CKD-EPI)NonAf (>60 ml/min/1.73 sqM) Glucose (74-99) mg/dL Plasma Lactic Acid Rod (0.7-2.0) mmol/L Calcium (8.4-10.2) mg/dL Total Bilirubin (0.2-1.3) mg/dL AST (14-36) U/L ALT (4-34) U/L Alkaline Phosphatase (38-126) U/L Troponin I (0.000-0.034) ng/mL Total Protein (6.3-8.2) g/dL Albumin (3.5-5.0) g/dL Amylase (30-110) U/L Lipase (23-300) U/L Urine Color Dark Brown Urine Appearance Cloudy H (Clear) Urine pH 5.0 (5.0-8.0) Ur Specific [place] 1.022 (1.001-1.035) Urine Protein 2+ H (Negative) Urine Glucose (UA) Negative (Negative) Urine Ketones 1+ H (Negative) Urine Blood Negative (Negative) Urine Nitrite Negative (Negative) Urine Bilirubin 1+ H (Negative) Urine Urobilinogen 6.0 (<2.0) mg/dL Ur Leukocyte Esterase Trace H (Negative) Urine RBC 1 (0-5) /hpf Urine WBC 7 H (0-5) /hpf Ur Squamous Epith Cells 1 (0-4) /hpf Hyaline Casts 32 H (0-2) /lpf Urine Mucus Many H (None) /hpf Urine HCG, Qual (Not Detectd) Influenza Type A (PCR) (Not Detectd) Influenza Type B (PCR) (Not Detectd) RSV (PCR) (Not Detectd) SARS-CoV-2 (PCR) (Not Detectd) 08/18/22 08/18/22 08/18/22 Range/Units 16:19 16:19 16:19 WBC (3.8-10.6) k/uL RBC (3.80-5.40) m/uL Hgb (11.4-16.0) gm/dL Hct (34.0-46.0) % MCV (80.0-100.0) fL MCH (25.0-35.0) pg MCHC (31.0-37.0) g/dL RDW (11.5-15.5) % Plt Count (150-450) k/uL MPV Neutrophils % % Lymphocytes % % Monocytes % % Eosinophils % % Basophils % % Neutrophils # (1.3-7.7) k/uL Lymphocytes # (1.0-4.8) k/uL Monocytes # (0-1.0) k/uL Eosinophils # (0-0.7) k/uL Basophils # (0-0.2) k/uL PT (9.0-12.0) sec INR (<1.2) APTT (22.0-30.0) sec Sodium 140 (137-145) mmol/L Potassium 3.8 (3.5-5.1) mmol/L Chloride 106 (98-107) mmol/L Carbon Dioxide 25 (22-30) mmol/L Anion Gap 9 mmol/L BUN 20 H (7-17) mg/dL Creatinine 1.04 (0.52-1.04) mg/dL Est GFR (CKD-EPI)AfAm 71 (>60 ml/min/1.73 sqM) Est GFR (CKD-EPI)NonAf 61 (>60 ml/min/1.73 sqM) Glucose 68 L (74-99) mg/dL Plasma Lactic Acid Rod 0.9 (0.7-2.0) mmol/L Calcium 9.3 (8.4-10.2) mg/dL Total Bilirubin 0.5 (0.2-1.3) mg/dL AST 26 (14-36) U/L ALT 15 (4-34) U/L Alkaline Phosphatase 62 (38-126) U/L Troponin I (0.000-0.034) ng/mL Total Protein 6.6 (6.3-8.2) g/dL Albumin 4.1 (3.5-5.0) g/dL Amylase 73 (30-110) U/L Lipase 176 (23-300) U/L Urine Color Urine Appearance (Clear) Urine pH (5.0-8.0) Ur Specific [place] (1.001-1.035) Urine Protein (Negative) Urine Glucose (UA) (Negative) Urine Ketones (Negative) Urine Blood (Negative) Urine Nitrite (Negative) Urine Bilirubin (Negative) Urine Urobilinogen (<2.0) mg/dL Ur Leukocyte Esterase (Negative) Urine RBC (0-5) /hpf Urine WBC (0-5) /hpf Ur Squamous Epith Cells (0-4) /hpf Hyaline Casts (0-2) /lpf Urine Mucus (None) /hpf Urine HCG, Qual Not Detected (Not Detectd) Influenza Type A (PCR) (Not Detectd) Influenza Type B (PCR) (Not Detectd) RSV (PCR) (Not Detectd) SARS-CoV-2 (PCR) (Not Detectd) 08/18/22 08/18/22 Range/Units 16:19 16:54 WBC (3.8-10.6) k/uL RBC (3.80-5.40) m/uL Hgb (11.4-16.0) gm/dL Hct (34.0-46.0) % MCV (80.0-100.0) fL MCH (25.0-35.0) pg MCHC (31.0-37.0) g/dL RDW (11.5-15.5) % Plt Count (150-450) k/uL MPV Neutrophils % % Lymphocytes % % Monocytes % % Eosinophils % % Basophils % % Neutrophils # (1.3-7.7) k/uL Lymphocytes # (1.0-4.8) k/uL Monocytes # (0-1.0) k/uL Eosinophils # (0-0.7) k/uL Basophils # (0-0.2) k/uL PT (9.0-12.0) sec INR (<1.2) APTT (22.0-30.0) sec Sodium (137-145) mmol/L Potassium (3.5-5.1) mmol/L Chloride (98-107) mmol/L Carbon Dioxide (22-30) mmol/L Anion Gap mmol/L BUN (7-17) mg/dL Creatinine (0.52-1.04) mg/dL Est GFR (CKD-EPI)AfAm (>60 ml/min/1.73 sqM) Est GFR (CKD-EPI)NonAf (>60 ml/min/1.73 sqM) Glucose (74-99) mg/dL Plasma Lactic Acid Rod (0.7-2.0) mmol/L Calcium (8.4-10.2) mg/dL Total Bilirubin (0.2-1.3) mg/dL AST (14-36) U/L ALT (4-34) U/L Alkaline Phosphatase (38-126) U/L Troponin I <0.012 (0.000-0.034) ng/mL Total Protein (6.3-8.2) g/dL Albumin (3.5-5.0) g/dL Amylase (30-110) U/L Lipase (23-300) U/L Urine Color Urine Appearance (Clear) Urine pH (5.0-8.0) Ur Specific [place] (1.001-1.035) Urine Protein (Negative) Urine Glucose (UA) (Negative) Urine Ketones (Negative) Urine Blood (Negative) Urine Nitrite (Negative) Urine Bilirubin (Negative) Urine Urobilinogen (<2.0) mg/dL Ur Leukocyte Esterase (Negative) Urine RBC (0-5) /hpf Urine WBC (0-5) /hpf Ur Squamous Epith Cells (0-4) /hpf Hyaline Casts (0-2) /lpf Urine Mucus (None) /hpf Urine HCG, Qual (Not Detectd) Influenza Type A (PCR) Not Detected (Not Detectd) Influenza Type B (PCR) Not Detected (Not Detectd) RSV (PCR) Not Detected (Not Detectd) SARS-CoV-2 (PCR) Not Detected (Not Detectd) Disposition Clinical Impression: Nausea & vomiting, Diarrhea Disposition: HOME SELF-CARE Condition: Good Instructions (If sedation given, give patient instructions): Acute Nausea and Vomiting (ED), Acute Diarrhea (ED) Additional Instructions: Follow-up with PCP. Report back to ER with any new or worsening symptoms. Take medication as prescribed. Prescriptions: Ondansetron Odt [Zofran Odt] 4 mg PO Q8HR PRN #20 tab PRN Reason: Nausea Is patient prescribed a controlled substance at d/c from ED?: No Referrals: Moe Rodas MD [Primary Care Provider] - 1-2 days Time of Disposition: 17:45
[2022-08-18 16:45] LABS: Appearance,Urine Cloudy (Clear); Bilirubin,Urine 1+ (Negative); Blood,Urine Negative (Negative); Color,Urine Dark Brown; Glucose,Urine (UA) Negative (Negative); Hyaline Casts,Urine 32 /lpf (0-2); Ketones,Urine 1+ (Negative); Leukocyte Esterase,Urine Trace (Negative); Mucus,Urine Many /hpf; Nitrite,Urine Negative (Negative); Protein,Urine 2+ (Negative); RBC,Urine 1 /hpf (0-5); Specific Gravity,Urine 1.022 (1.001-1.035); Squamous Epithelial Cell,Urine 1 /hpf (0-4); WBC,Urine 7 /hpf (0-5)
[2022-08-18 16:51] LABS: Albumin 4.1 g/dL (3.5-5.0); Potassium 3.8 mmol/L (3.5-5.1); Total Bilirubin 0.5 mg/dL (0.2-1.3); Total Protein 6.6 g/dL (6.3-8.2)
[2022-08-18 16:55] LABS: Prothrombin Time 10.6 sec (9.0-12.0)
[2022-08-18 17:04] LABS: Partial Thromboplastin Time 21.3 sec (22.0-30.0)
[2022-08-18 17:25] LABS: Calcium 9.3 mg/dL (8.4-10.2)
[2022-08-18 17:37] VITALS: BP 104/62; PULSE 81
== END 2022-08-18 18:27 | disposition home or self-care (01) ==
LOC: EC 14:31
DX: R11.2 Nausea with vomiting, unspecified (principal); R19.7 Diarrhea, unspecified; E11.9 Type 2 diabetes mellitus without complications; E78.5 Hyperlipidemia, unspecified; I10 Essential (primary) hypertension; Z20.822 Contact with and (suspected) exposure to COVID-19; Z88.2 Allergy status to sulfonamides; Z88.1 Allergy status to other antibiotic agents; Z90.49 Acquired absence of other specified parts of digestive tract; Z90.710 Acquired absence of both cervix and uterus; Z79.84 Long term (current) use of oral hypoglycemic drugs; Z79.899 Other long term (current) drug therapy
CPT/HCPCS: 36415; 80053; 81001; 81025; 82150; 83605; 83690; 84484; 85025; 85610; 85730; 87636; 93005; 96360; 96361; 99284

== ENCOUNTER 2022-11-23 09:15 | Emergency (ER) | payer OTHER ==
[2022-11-23] MEDS ORDERED: ONDANSETRON 4 MG/2 ML VIAL IVP STA (09:54)
[2022-11-23] MEDS ORDERED: ACETAMINOPHEN TAB 325 MG TAB PO STA (09:54)
[2022-11-23] MEDS ORDERED: SODIUM CHLORIDE 0.9% 500 ML 500 ML IV STA (09:55)
[2022-11-23] MEDS ORDERED: SODIUM CHLORIDE 0.9% 1,000 ML IV STA (09:55)
[2022-11-23] MEDS ORDERED: KETOROLAC 15 MG/ML 1 ML VIAL IVP STA (10:03)
--- NOTE | 2022-11-23 10:03 | ED ---
Abdominal Pain HPI - General Chief Complaint: Abdominal Pain Stated Complaint: Right Side Pain Upper Quad Time Seen by Provider: 11/23/22 09:38 Source: patient, RN notes reviewed Mode of arrival: ambulatory Limitations: no limitations - History of Present Illness Initial Comments: Patient is a 57 year old female presenting to the ER with a chief complaint of RUQ abdominal pain. She states it has been going on for the past 7-10 days. She endorses associated nausea and vomiting. She states her last vomiting episode was this morning when she threw up her "undigested" dinner from last night. Patient states she has had her gallbladder and uterus removed in the past. Patient denies taking anything for her nausea or pain at this time. Pt has a hx of lupus and her PCP told her to come to the ER to be evaluated. Denies diarrhea or constipation, urinary frequency, dysuria or flank pain. - Related Data Home Medications Medication Instructions Recorded Confirmed Pravastatin Sodium [Pravachol] 40 mg PO DAILY 11/15/16 08/18/22 Acetaminophen Tab [Tylenol] 500 mg PO Q8H PRN 06/06/22 08/18/22 DULoxetine HCL [Cymbalta] 60 mg PO DAILY 06/06/22 08/18/22 Dulaglutide [Trulicity] 0.75 mg SQ TU 06/06/22 08/18/22 Hydroxychloroquine Sulfate 200 mg PO DAILY 06/06/22 08/18/22 [Plaquenil] Naltrexone HCl/Bupropion HCl 2 tab PO BID 06/06/22 08/18/22 [Contrave ER 8-90 mg Tablet] Ondansetron Odt [Zofran ODT] 8 mg PO TID PRN 06/06/22 08/18/22 SUMAtriptan succinate [Imitrex] 50 mg PO BID PRN 06/06/22 08/18/22 Topiramate [Topamax] 50 mg PO DAILY 06/06/22 08/18/22 Cholecalciferol [Vitamin D3 (25 25 mcg PO DAILY 08/18/22 08/18/22 Mcg = 1000 Iu)] lisinopriL [Zestril] 10 mg PO DAILY 08/18/22 08/18/22 Previous Rx's Medication Instructions Recorded Aspirin 81 mg PO DAILY tab 06/09/22 Ondansetron Odt [Zofran Odt] 4 mg PO Q8HR PRN #20 tab 08/18/22 Omeprazole [PriLOSEC] 40 mg PO DAILY #14 cap 11/23/22 Allergies Allergy/AdvReac Type Severity Reaction Status Date / Time sulfamethoxazole AdvReac Migraines Verified 11/23/22 09:36 [From Bactrim] trimethoprim [From Bactrim] AdvReac Migraines Verified 11/23/22 09:36 seasonal/environmental Allergy Wheezing Uncoded 11/23/22 09:36 Review of Systems ROS Statement: Those systems with pertinent positive or pertinent negative responses have been documented in the HPI. ROS Other: All systems not noted in ROS Statement are negative. Past Medical History Past Medical History: Diabetes Mellitus, Hyperlipidemia, Hypertension Additional Past Medical History / Comment(s): Lupus, Migraines, Colitis, Reynauds, Fibromialgia, History of Any Multi-Drug Resistant Organisms: None Reported Past Surgical History: Section, Cholecystectomy, Hysterectomy Additional Past Surgical History / Comment(s): CERVICAL FORAMINOTOMY, D & C X 2, C-SECT X2, EXPLORATORY LAP, COLONOSCOPY, LT CATARACT REMOVAL Past Anesthesia/Blood Transfusion Reactions: No Reported Reaction Past Psychological History: No Psychological Hx Reported Smoking Status: Never smoker Past Alcohol Use History: Rare Past Drug Use History: None Reported - Past Family History Father Family Medical History: Cancer Additional Family Medical History / Comment(s): Prostate cancer. Mother Family Medical History: Musculoskeletal Disorder Additional Family Medical History / Comment(s): Mother from [place]. General Exam Limitations: no limitations General appearance: alert, in no apparent distress Head exam: Present: atraumatic, normocephalic, normal inspection Eye exam: Present: normal appearance, PERRL, EOMI. Absent: scleral icterus, conjunctival injection, periorbital swelling Neck exam: Present: normal inspection. Absent: tenderness, meningismus, lymphadenopathy Respiratory exam: Present: normal lung sounds bilaterally. Absent: respiratory distress, wheezes, rales, rhonchi, stridor Cardiovascular Exam: Present: regular rate, normal rhythm, normal heart sounds. Absent: systolic murmur, diastolic murmur, rubs, gallop, clicks GI/Abdominal exam: Present: soft, tenderness, normal bowel sounds. Absent: distended, guarding, rebound, rigid Back exam: Absent: CVA tenderness (R), CVA tenderness (L) Neurological exam: Present: alert Course Vital Signs 11/23/22 11/23/22 11/23/22 09:33 11:08 12:38 Temperature 98 F 97.6 F Pulse Rate 108 H 87 82 Respiratory 18 16 18 Rate Blood Pressure 142/88 115/80 115/78 O2 Sat by Pulse 98 100 97 Oximetry Medical Decision Making - Medical Decision Making Was pt. sent in by a medical professional or institution (, PA, GROMMET MAN, urgent care, hospital, or halfway...) When possible be specific @ -PCP Did you speak to anyone other than the patient for history (EMS, parent, family, police, friend...)? What history was obtained from this source @ -No Did you review nursing and triage notes (agree or disagree)? Why? @ -I reviewed and agree with nursing and triage notes Were old charts reviewed (outside hosp., previous admission, EMS record, old EKG, old radiological studies, urgent care reports/EKG's, halfway records)? Report findings @ -No old charts were reviewed Differential Diagnosis (chest pain, altered mental status, abdominal pain women, abdominal pain men, vaginal bleeding, weakness, fever, dyspnea, syncope, headache, dizziness, GI bleed, back pain, seizure, CVA, palpatations, mental health, musculoskeletal)? @ -Differential Abdominal Pain Women: Appendicitis, Cholecystitis, diverticulosis, ischemic bowel, pancreatitis, hepatitis, UTI, gastroenteritis, AAA, incarcerated hernia, bowel obstruction, constipation, inflammatory bowel, hepatitis, peptic ulcer disease, splenic infa rction, perforated viscus, vulvitis, ovarian torsion, PID, kidney stone, placenta abruption, this is not meant to be an all-inclusive liste EKG interpreted by me (3pts min.). @ -None X-rays interpreted by me (1pt min.). @ -None done CT interpreted by me (1pt min.). @ -CT shows no acute intra-abdominal process no evidence of diverticulitis no perforation U/S interpreted by me (1pt. min.). @ -None done What testing was considered but not performed or refused? (CT, X-rays, U/S, labs)? Why? @ -None What meds were considered but not given or refused? Why? @ -None Did you discuss the management of the patient with other professionals (professionals i.e. , PA, GROMMET MAN, lab, RT, psych nurse, health care social worker, tube splicer, teacher, transit authority police officer, caser in)? Give summary @ -No Was smoking cessation discussed for >3mins.? @ -No Was critical care preformed (if so, how long)? @ -No Were there social determinants of health that impacted care today? How? (Homelessness, low income, unemployed, alcoholism, drug addiction, transportation, low edu. Level, literacy, decrease access to med. care, fpc, rehab)? @ -No Was there de-escalation of care discussed even if they declined (Discuss DNR or withdrawal of care, Hospice)? DNR status @ -No What co-morbidities impacted this encounter? (DM, HTN, Smoking, COPD, CAD, Cancer, CVA, ARF, Chemo, Hep., AIDS, mental health diagnosis, sleep apnea, morbid obesity)? @ -Lupus Was patient admitted / discharged? Hospital course, mention meds given and route, prescriptions, significant lab abnormalities, going to OR and other pertinent info. @ -Discharge patient's workup including labs, CT. Patient symptoms are very mild at this time. Patient will be discharged with omeprazole follow-up with becoming GI return parameters were discussed. Undiagnosed new problem with uncertain prognosis? @ -No Drug Therapy requiring intensive monitoring for toxicity (Heparin, Nitro, Insulin, Cardizem)? @ -No Were any procedures done? @ -No Diagnosis/symptom? @ -Abdominal pain Acute, or Chronic, or Acute on Chronic? @ -Acute Uncomplicated (without systemic symptoms) or Complicated (systemic symptoms)? @ -Uncomplicated Side effects of treatment? @ -No Exacerbation, Progression, or Severe Exacerbation? @ -No Poses a threat to life or bodily function? How? (Chest pain, USA, SD, pneumonia, PE, COPD, DKA, ARF, appy, cholecystitis, CVA, Diverticulitis, Homicidal, Suicidal, threat to staff... and all critical care pts) @ -No - Lab Data Result diagrams: 11/23/22 10:29 11/23/22 10:29 Lab Results 11/23/22 11/23/22 11/23/22 Range/Units 10:29 10:29 10:29 WBC 6.7 (3.8-10.6) k/uL RBC 5.28 (3.80-5.40) m/uL Hgb 16.2 H (11.4-16.0) gm/dL Hct 48.1 H (34.0-46.0) % MCV 91.2 (80.0-100.0) fL MCH 30.8 (25.0-35.0) pg MCHC 33.7 (31.0-37.0) g/dL RDW 12.0 (11.5-15.5) % Plt Count 268 (150-450) k/uL MPV 7.9 Sodium 142 (137-145) mmol/L Potassium 3.9 (3.5-5.1) mmol/L Chloride 105 (98-107) mmol/L Carbon Dioxide 26 (22-30) mmol/L Anion Gap 11 mmol/L BUN 19 H (7-17) mg/dL Creatinine 0.97 (0.52-1.04) mg/dL Est GFR (CKD-EPI)AfAm 76 (>60 ml/min/1.73 sqM) Est GFR (CKD-EPI)NonAf 66 (>60 ml/min/1.73 sqM) Glucose 73 L (74-99) mg/dL Plasma Lactic Acid Rod (0.7-2.0) mmol/L Calcium 10.3 H (8.4-10.2) mg/dL Total Bilirubin 0.3 (0.2-1.3) mg/dL AST 25 (14-36) U/L ALT 14 (4-34) U/L Alkaline Phosphatase 77 (38-126) U/L Total Protein 7.5 (6.3-8.2) g/dL Albumin 4.6 (3.5-5.0) g/dL Lipase 268 (23-300) U/L Urine Color Yellow Urine Appearance Clear (Clear) Urine pH 6.0 (5.0-8.0) Ur Specific Gause 1.022 (1.001-1.035) Urine Protein 1+ H (Negative) Urine Glucose (UA) Negative (Negative) Urine Ketones Trace H (Negative) Urine Blood Negative (Negative) Urine Nitrite Negative (Negative) Urine Bilirubin Negative (Negative) Urine Urobilinogen 2.0 (<2.0) mg/dL Ur Leukocyte Esterase Small H (Negative) Urine RBC 3 (0-5) /hpf Urine WBC 5 (0-5) /hpf Ur Squamous Epith Cells 1 (0-4) /hpf Hyaline Casts 24 H (0-2) /lpf Urine Mucus Many H (None) /hpf 11/23/22 Range/Units 10:29 WBC (3.8-10.6) k/uL RBC (3.80-5.40) m/uL Hgb (11.4-16.0) gm/dL Hct (34.0-46.0) % MCV (80.0-100.0) fL MCH (25.0-35.0) pg MCHC (31.0-37.0) g/dL RDW (11.5-15.5) % Plt Count (150-450) k/uL MPV Sodium (137-145) mmol/L Potassium (3.5-5.1) mmol/L Chloride (98-107) mmol/L Carbon Dioxide (22-30) mmol/L Anion Gap mmol/L BUN (7-17) mg/dL Creatinine (0.52-1.04) mg/dL Est GFR (CKD-EPI)AfAm (>60 ml/min/1.73 sqM) Est GFR (CKD-EPI)NonAf (>60 ml/min/1.73 sqM) Glucose (74-99) mg/dL Plasma Lactic Acid Rod 1.1 (0.7-2.0) mmol/L Calcium (8.4-10.2) mg/dL Total Bilirubin (0.2-1.3) mg/dL AST (14-36) U/L ALT (4-34) U/L Alkaline Phosphatase (38-126) U/L Total Protein (6.3-8.2) g/dL Albumin (3.5-5.0) g/dL Lipase (23-300) U/L Urine Color Urine Appearance (Clear) Urine pH (5.0-8.0) Ur Specific Gause (1.001-1.035) Urine Protein (Negative) Urine Glucose (UA) (Negative) Urine Ketones (Negative) Urine Blood (Negative) Urine Nitrite (Negative) Urine Bilirubin (Negative) Urine Urobilinogen (<2.0) mg/dL Ur Leukocyte Esterase (Negative) Urine RBC (0-5) /hpf Urine WBC (0-5) /hpf Ur Squamous Epith Cells (0-4) /hpf Hyaline Casts (0-2) /lpf Urine Mucus (None) /hpf Disposition Clinical Impression: Abdominal pain Disposition: HOME SELF-CARE Condition: Stable Instructions (If sedation given, give patient instructions): Abdominal Pain (ED) Additional Instructions: Please return to the Emergency Department if symptoms worsen or any other concerns. Prescriptions: Omeprazole [PriLOSEC] 40 mg PO DAILY #14 cap Is patient prescribed a controlled substance at d/c from ED?: No Referrals: Moe Rodas MD [Primary Care Provider] - 1-2 days Ann Marie Bergman MD [STAFF PHYSICIAN] - 1-2 days Time of Disposition: 12:23
[2022-11-23 10:42] LABS: HCT 48.1 % (34.0-46.0); HGB 16.2 gm/dL (11.4-16.0); MCH 30.8 pg (25.0-35.0); MCHC 33.7 g/dL (31.0-37.0); MCV 91.2 fL (80.0-100.0); Mean Platelet Volume 7.9; Platelet Count 268 k/uL (150-450); RBC 5.28 m/uL (3.80-5.40); WBC 6.7 k/uL (3.8-10.6)
[2022-11-23 10:49] LABS: ALT 14 U/L (4-34); AST 25 U/L (14-36); African American GFR (CKD) 76 (>60 ml/min/1.73 sqM); Albumin 4.6 g/dL (3.5-5.0); Alkaline Phosphatase 77 U/L (38-126); Anion Gap 11 mmol/L; Blood Urea Nitrogen 19 mg/dL (7-17); Calcium 10.3 mg/dL (8.4-10.2); Carbon Dioxide 26 mmol/L (22-30); Chloride 105 mmol/L (98-107); Glucose 73 mg/dL (74-99); Lipase 268 U/L (23-300); Non-African American GFR(CKD) 66 (>60 ml/min/1.73 sqM); Potassium 3.9 mmol/L (3.5-5.1); Sodium 142 mmol/L (137-145); Total Bilirubin 0.3 mg/dL (0.2-1.3); Total Protein 7.5 g/dL (6.3-8.2)
[2022-11-23 11:01] LABS: Appearance,Urine Clear (Clear); Bilirubin,Urine Negative (Negative); Blood,Urine Negative (Negative); Color,Urine Yellow; Glucose,Urine (UA) Negative (Negative); Hyaline Casts,Urine 24 /lpf (0-2); Ketones,Urine Trace (Negative); Leukocyte Esterase,Urine Small (Negative); Mucus,Urine Many /hpf; Nitrite,Urine Negative (Negative); Protein,Urine 1+ (Negative); RBC,Urine 3 /hpf (0-5); Specific Gravity,Urine 1.022 (1.001-1.035); Squamous Epithelial Cell,Urine 1 /hpf (0-4); WBC,Urine 5 /hpf (0-5)
--- NOTE | 2022-11-23 12:00 | CT ---
EXAMINATION TYPE: CT abdomen pelvis w con DATE OF EXAM: 11/23/2022 COMPARISON: None HISTORY: RUQ pain x 7-[address] DLP: 570.4 mGycm CONTRAST: CT scan of the abdomen and pelvis is performed without Oral Contrast and with IV Contrast, patient in jected with 100 ml mL of Isovue 300. FINDINGS: LUNG BASES-: No visible nodule. No infiltrate. LIVER/GB: The gallbladder is surgically absent. There is a free-floating cholecystectomy clip No s pace occupying hepatic lesion. Biliary tree is of normal caliber. PANCREAS: No inflammation. No distinct mass. SPLEEN: No splenic enlargement. No lesion seen. ADRENALS: No nodule. No thickening. KIDNEYS/BLADDER: No hydronephrosis. No nephrolithiasis. No distinct renal mass. Urinary bladder g rossly unremarkable. BOWEL: Nonvisualization of the appendix. Normal bowel caliber. No inflammation. GENITAL ORGANS: Hysterectomy changes. LYMPH NODES: No greater than 1cm abdominal or pelvic lymph nodes are appreciated. AORTA: No significant abnormality. OSSEOUS STRUCTURES: No significant abnormality is seen. OTHER: No significant additional abnormality is seen. IMPRESSION: 1. No acute process seen to account for the patient's symptoms.
[2022-11-23 12:41] VITALS: BP 115/78; PULSE 82; RESP 18; TEMP 97.6
== END 2022-11-23 12:46 | disposition home or self-care (01) ==
LOC: EC 09:15
DX: R10.11 Right upper quadrant pain (principal); E11.9 Type 2 diabetes mellitus without complications; I10 Essential (primary) hypertension; E78.5 Hyperlipidemia, unspecified; Z79.85 Long-term (current) use of injectable non-insulin antidiabetic drugs; Z79.899 Other long term (current) drug therapy; Z88.1 Allergy status to other antibiotic agents; Z88.2 Allergy status to sulfonamides; Z91.09 Other allergy status, other than to drugs and biological substances; Z90.49 Acquired absence of other specified parts of digestive tract
CPT/HCPCS: 36415; 80053; 83605; 83690; 85027; 81001; 74177; 99284; 96374; 96375; J2405; J1885; Q9967

== ENCOUNTER 2024-01-11 15:50 | Emergency (ER) | payer OTHER ==
[2024-01-11] MEDS ORDERED: KETOROLAC 15 MG/ML 1 ML VIAL ONE (16:33)
[2024-01-11] MEDS ORDERED: HYDROmorphone 1 MG/ML 1 ML SYRINGE ONE ×2 (16:33→17:55)
[2024-01-11] MEDS ORDERED: SODIUM CHLORIDE 0.9% 1,000 ML BAG ONE (16:45)
--- NOTE | 2024-02-07 09:49 | CT ---
EXAM: CT angiogram chest. CT angiogram abdomen and pelvis. DATE: 01/11/2024 20:31 INDICATION: Patient age:AWILDA CLIFTON :1965 Reason for study: LEFT SIDED CHEST AND ABDOMINAL PAIN COMPARISON: None, please note PACS downtime occurred during the radiologist interpretation of these i mages with limited priors/reports.. TECHNIQUE: Multiple axial CT images of the chest, abdomen, and pelvis were obtained after the adminis tration of 100 cc Isovue-370 IV contrast. Sagittal and coronal reformats were created. MIP imaging of the chest was performed on separate workstation. One or more CT dose reduction strategies were utili zed during this examination. DLP administered was 725.9 mGycm. FINDINGS: ARTERIAL VASCULATURE: The aorta is normal in course and caliber. There is no evidence of aortic disse ction, aneurysm or acute aortic injury. Great arch vessels patent and normal in course and caliber. M ild atherosclerotic changes of the thoracic aorta. PULMONARY ARTERIAL VASCULATURE: Normal caliber. VENOUS SYSTEM: Unremarkable. Lungs/pleura: No focal consolidation, pneumothorax or pleural effusion. Accessory fissure in the supe rior aspect of the right lower lobe with intrafissural lymph node series 4 image 73. Heart: Within normal limits. Mediastinum: No gross evidence of adenopathy. Lower Neck: No significant findings. Abdomen: LIVER: Unremarkable GALLBLADDER AND BILE DUCTS: The gallbladder is surgically absent. PANCREAS: Unremarkable. SPLEEN: Unremarkable. ADRENAL GLANDS: Unremarkable. KIDNEYS AND URETERS: No evidence of hydronephrosis or renal calculus. The ureters are unremarkable. PELVIS BLADDER: Unremarkable REPRODUCTIVE: The uterus is absent. ABDOMEN & PELVIS STOMACH AND BOWEL: Large stool burden throughout the colon. Stomach and duodenum are unremarkable. No evidence of bowel obstruction. PERITONEUM: No evidence of pneumoperitoneum or free fluid. VASCULATURE: No evidence of aortic aneurysm. MUSCULOSKELETAL: No acute osseous abnormalities LYMPH NODES: No gross evidence for lymphadenopathy. SOFT TISSUE/ABDOMINAL WALL: Unremarkable IMPRESSION: 1. No evidence for aortic dissection, aneurysm or occlusion. 2. No evidence for acute thoracic process. 3. No evidence for acute abdominal process. 4. Very large amount stool throughout the colon.
--- NOTE | 2024-02-08 16:32 | XR ---
EXAMINATION TYPE: XR ribs LT w pa chest xray DATE OF EXAM: 01/11/2024 INDICATION: Patient age:Female; 58 years old; Reason for study: LEFT CENTER RIB PAIN, NKI; PH[facility]. COMPARISON: Chest radiograph 06/06/2022, CTA chest 06/08/2022 TECHNIQUE: Frontal and oblique views of the left ribs with PA chest radiograph. FINDINGS: The ribs have a normal appearance. No evidence of fracture. Overall, the lungs are clear. The cardiac silhouette is normal in size. Atherosclerotic calcification of the aorta. The remaining osseous structures are intact. Sutures identified within the left neck. Cholecystectomy clips in the right upper quadrant. IMPRESSION: No acute osseous pathology.
== END 2024-01-11 21:08 | disposition home or self-care (01) ==
LOC: EC 15:50
CPT/HCPCS: 71275; 74177; 96361; 96374; 96375; 96376; 99284

== ENCOUNTER 2024-06-02 17:07 | Emergency (ER) | payer OTHER ==
[2024-06-02 17:18] VITALS: RESP 16; TEMP 98.4
[2024-06-02 18:16] LABS: Amorphous Sediment,Urine Moderate /hpf; Appearance,Urine Turbid (Clear); Bilirubin,Urine Negative (Negative); Blood,Urine Negative (Negative); Color,Urine Yellow; Glucose,Urine (UA) Negative (Negative); Ketones,Urine Trace (Negative); Leukocyte Esterase,Urine Negative (Negative); Mucus,Urine Moderate /hpf; Nitrite,Urine Negative (Negative); Protein,Urine Negative (Negative); RBC,Urine 4 /hpf (0-5); Specific Gravity,Urine 1.017 (1.001-1.035); Squamous Epithelial Cell,Urine 1 /hpf (0-4); Urobilinogen,Urine <2.0 mg/dL (<2.0)
--- NOTE | 2024-06-02 18:21 | ED ---
Abdominal Pain HPI - General Source: patient Mode of arrival: ambulatory Limitations: no limitations <Conner Lomeli - Last Filed: 06/02/24 18:21> <Sanjiv Payne - Last Filed: 06/03/24 02:28> - General Chief Complaint: Abdominal Pain Stated Complaint: Abd pain Time Seen by Provider: 06/02/24 18:21 - History of Present Illness Initial Comments: 58-year-old female presenting with chief complaint of abdominal pain. She is having right upper quadrant pain. History of cholecystectomy. She had a CT performed at an outside facility which showed hepatic steatosis. She has been using a heating pad over her abdomen but the pain has been persistent. (Conner Lomeli) - Related Data Home Medications Medication Instructions Recorded Confirmed Pravastatin Sodium [Pravachol] 40 mg PO DAILY 11/15/16 08/18/22 Acetaminophen Tab [Tylenol] 500 mg PO Q8H PRN 06/06/22 08/18/22 DULoxetine HCL [Cymbalta] 60 mg PO DAILY 06/06/22 08/18/22 Dulaglutide [Trulicity] 0.75 mg SQ TU 06/06/22 08/18/22 Hydroxychloroquine Sulfate 200 mg PO DAILY 06/06/22 08/18/22 [Plaquenil] Naltrexone HCl/Bupropion HCl 2 tab PO BID 06/06/22 08/18/22 [Contrave ER 8-90 mg Tablet] Ondansetron Odt [Zofran ODT] 8 mg PO TID PRN 06/06/22 08/18/22 SUMAtriptan succinate [Imitrex] 50 mg PO BID PRN 06/06/22 08/18/22 Topiramate [Topamax] 50 mg PO DAILY 06/06/22 08/18/22 Cholecalciferol [Vitamin D3 (25 25 mcg PO DAILY 08/18/22 08/18/22 Mcg = 1000 Iu)] lisinopriL [Zestril] 10 mg PO DAILY 08/18/22 08/18/22 Previous Rx's Medication Instructions Recorded Aspirin 81 mg PO DAILY tab 06/09/22 Ondansetron Odt [Zofran Odt] 4 mg PO Q8HR PRN #20 tab 08/18/22 Omeprazole [PriLOSEC] 40 mg PO DAILY #14 cap 11/23/22 HYDROcodone/APAP 5-325MG [[place] 1 tab PO Q6HR PRN #12 tab 06/03/24 5-325] Allergies Allergy/AdvReac Type Severity Reaction Status Date / Time sulfamethoxazole AdvReac Migraines Verified 06/02/24 17:18 [From Bactrim] trimethoprim [From Bactrim] AdvReac Migraines Verified 06/02/24 17:18 seasonal/environmental Allergy Wheezing Uncoded 11/23/22 09:36 Review of Systems ROS Other: All systems not noted in ROS Statement are negative. <Conner Lomeli - Last Filed: 06/02/24 18:21> ROS Other: All systems not noted in ROS Statement are negative. <Sanjiv Payne - Last Filed: 06/03/24 02:28> ROS Statement: Those systems with pertinent positive or pertinent negative responses have been documented in the HPI. Past Medical History Past Medical History: Diabetes Mellitus, Hyperlipidemia, Hypertension Additional Past Medical History / Comment(s): Lupus, Migraines, Colitis, Reynauds, Fibromialgia, History of Any Multi-Drug Resistant Organisms: None Reported Past Surgical History: Section, Cholecystectomy, Hysterectomy Additional Past Surgical History / Comment(s): CERVICAL FORAMINOTOMY, D & C X 2, C-SECT X2, EXPLORATORY LAP, COLONOSCOPY, LT CATARACT REMOVAL Past Anesthesia/Blood Transfusion Reactions: No Reported Reaction Past Psychological History: No Psychological Hx Reported Smoking Status: Never smoker Past Alcohol Use History: Rare Past Drug Use History: None Reported - Past Family History Father Family Medical History: Cancer Additional Family Medical History / Comment(s): Prostate cancer. Mother Family Medical History: Musculoskeletal Disorder Additional Family Medical History / Comment(s): Mother from [place]. <Conner Lomeli - Last Filed: 06/02/24 18:21> General Exam Limitations: no limitations <Conner Lomeli - Last Filed: 06/02/24 18:21> General appearance: alert, in no apparent distress Head exam: Present: atraumatic, normocephalic Eye exam: Present: normal appearance, PERRL ENT exam: Present: normal exam Neck exam: Present: normal inspection. Absent: tenderness, meningismus Respiratory exam: Present: normal lung sounds bilaterally. Absent: respiratory distress, wheezes Cardiovascular Exam: Present: regular rate, normal rhythm GI/Abdominal exam: Present: soft, tenderness ( right upper quadrant). Absent: distended Extremities exam: Present: normal inspection Neurological exam: Present: alert, oriented X3 Psychiatric exam: Present: normal affect, normal mood Skin exam: Present: warm, dry, intact <Sanjiv Payne - Last Filed: 06/03/24 02:28> - General Exam Comments Initial Comments: Visual Physical Exam Vital signs reviewed General: Well-appearing, nontoxic, no acute distress. Head: Normocephalic, atraumatic Eyes: PERRLA, EOMI ENT: Airway patent Chest: Nonlabored breathing Skin: No visual rash, normal skin tone Neuro: Alert and oriented 3 Musculoskeletal: No gross abnormalities (Conner Lomeli) Course Vital Signs 06/02/24 06/02/24 17:15 22:18 Temperature 98.4 F Pulse Rate 98 86 Respiratory 16 16 Rate Blood Pressure 127/87 118/83 O2 Sat by Pulse 99 99 Oximetry Medical Decision Making <Conner Lomeli - Last Filed: 06/02/24 18:21> - Lab Data Result diagrams: 06/02/24 19:30 06/02/24 19:30 <Sanjiv Payne - Last Filed: 06/03/24 02:28> - Medical Decision Making I performed the quick note portion of this visit, electronically signed Conner Lomeli PA-C (Conner Lomeli) Was pt. sent in by a medical professional or institution ([facility], [employer], urgent care, hospital, or longterm...) When possible be specific @ -No Did you speak to anyone other than the patient for history (EMS, parent, family, police, friend...)? What history was obtained from this source @ -No Did you review nursing and triage notes (agree or disagree)? Why? @ -I reviewed and agree with nursing and triage notes Were old charts reviewed (outside hosp., previous admission, EMS record, old EKG, old radiological studies, urgent care reports/EKG's, longterm records)? Report findings @ -No old charts were reviewed Differential Abdominal Pain Women: Appendicitis, Cholecystitis, diverticulosis, ischemic bowel, pancreatitis, hepatitis, UTI, gastroenteritis, AAA, incarcerated hernia, bowel obstruction, constipation, inflammatory bowel, hepatitis, peptic ulcer disease, splenic infarction, perforated viscus, vulvitis, ovarian torsion, kidney stone, this is not meant to be an all-inclusive list ] EKG interpreted by me (3pts min.). @ -Sinus rhythm rate of 82, VA interval 143, QRS duration 84, QTc [address] segment elevation. X-rays interpreted by me (1pt min.). @ -None done CT interpreted by me (1pt min.). @ -CT of the abdomen pelvis showing duodenitis and focal ileus no other acute findings. U/S interpreted by me (1pt. min.). @ -None done What testing was considered but not performed or refused? (CT, X-rays, U/S, labs)? Why? @ -None What meds were considered but not given or refused? Why? @ -None Did you discuss the management of the patient with other professionals (professionals i.e. DrMylene, PA, [employer], lab, RT, psych nurse, social studies department chair, acoustical engineer, teacher, administrative officer, director case)? Give summary @ -No Was smoking cessation discussed for >3mins.? @ -No Was critical care preformed (if so, how long)? @ -No Were there social determinants of health that impacted care today? How? (Homelessness, low income, unemployed, alcoholism, drug addiction, transportation, low edu. Level, literacy, decrease access to med. care, custodial, rehab)? @ -No Was there de-escalation of care discussed even if they declined (Discuss DNR or withdrawal of care, Hospice)? DNR status @ -No What co-morbidities impacted this encounter? (DM, HTN, Smoking, COPD, CAD, Cancer, CVA, ARF, Chemo, Hep., AIDS, mental health diagnosis, sleep apnea, morbid obesity)? @ -[Prior cholecystectomy Was patient admitted / discharged? Hospital course, mention meds given and route, prescriptions, significant lab abnormalities, going to OR and other pertinent info. @ -58-year-old female with a 1 to 2-day history of predominantly right upper quadrant abdominal pain, prior cholecystectomy. Patient does have diarrhea as well. Normal CBC, normal CMP, CT abdomen pelvis showing a jejunitis and ileus. No other acute findings. Patient has no vomiting while in the emergency department. Vital signs remained stable. She will take symptomatic treatment with strict return parameters including persistent vomiting or worsening pain. Undiagnosed new problem with uncertain prognosis? @ -No Drug Therapy requiring intensive monitoring for toxicity (Heparin, Nitro, Ins ulin, Cardizem)? @ -No Were any procedures done? @ -No Diagnosis/symptom? @ -Enteritis Acute, or Chronic, or Acute on Chronic? @ -Acute Uncomplicated (without systemic symptoms) or Complicated (systemic symptoms)? @ -Default Side effects of treatment? @ -No Exacerbation, Progression, or Severe Exacerbation? @ -No Poses a threat to life or bodily function? How? (Chest pain, [place], [place], pneumonia, PE, COPD, DKA, ARF, appy, cholecystitis, CVA, Diverticulitis, Homicidal, Suicidal, threat to staff... and all critical care pts) @Low risk (Sanjiv Payne) - Lab Data Lab Results 06/02/24 06/02/24 06/02/24 Range/Units 18:02 19:30 19:30 WBC 7.2 (3.8-10.6) k/uL RBC 4.91 (3.80-5.40) m/uL Hgb 15.3 (11.4-16.0) gm/dL Hct 44.0 (34.0-46.0) % MCV 89.6 (80.0-100.0) fL MCH 31.3 (25.0-35.0) pg MCHC 34.9 (31.0-37.0) g/dL RDW 12.3 (11.5-15.5) % Plt Count 294 (150-450) k/uL MPV 7.4 Neutrophils % 55 % Lymphocytes % 36 % Monocytes % 4 % Eosinophils % 3 % Basophils % 1 % Neutrophils # 4.0 (1.3-7.7) k/uL Lymphocytes # 2.6 (1.0-4.8) k/uL Monocytes # 0.3 (0-1.0) k/uL Eosinophils # 0.2 (0-0.7) k/uL Basophils # 0.0 (0-0.2) k/uL Sodium 141 (137-145) mmol/L Potassium 3.8 (3.5-5.1) mmol/L Chloride 106 (98-107) mmol/L Carbon Dioxide 23 (22-30) mmol/L Anion Gap 12 mmol/L BUN 19 H (7-17) mg/dL Creatinine 1.09 H (0.52-1.04) mg/dL Est GFR (CKD-EPI)AfAm 66 (>60 ml/min/1.73 sqM) Est GFR (CKD-EPI)NonAf 57 (>60 ml/min/1.73 sqM) Glucose 76 (74-99) mg/dL Plasma Lactic Acid Rod (0.7-2.0) mmol/L Calcium 10.5 H (8.4-10.2) mg/dL Total Bilirubin 0.4 (0.2-1.3) mg/dL AST 24 (14-36) U/L ALT 14 (4-34) U/L Alkaline Phosphatase 103 (38-126) U/L Troponin I (0.000-0.034) ng/mL Total Protein 7.0 (6.3-8.2) g/dL Albumin 4.5 (3.5-5.0) g/dL Amylase 83 (30-110) U/L Lipase 191 (23-300) U/L Urine Color Yellow Urine Appearance Turbid H (Clear) Urine pH 8.0 (5.0-8.0) Ur Specific [place] 1.017 (1.001-1.035) Urine Protein Negative (Negative) Urine Glucose (UA) Negative (Negative) Urine Ketones Trace H (Negative) Urine Blood Negative (Negative) Urine Nitrite Negative (Negative) Urine Bilirubin Negative (Negative) Urine Urobilinogen <2.0 (<2.0) mg/dL Ur Leukocyte Esterase Negative (Negative) Urine RBC 4 (0-5) /hpf Ur Squamous Epith Cells 1 (0-4) /hpf Amorphous Sediment Moderate H (None) /hpf Urine Mucus Moderate H (None) /hpf 06/02/24 06/02/24 Range/Units 19:30 19:30 WBC (3.8-10.6) k/uL RBC (3.80-5.40) m/uL Hgb (11.4-16.0) gm/dL Hct (34.0-46.0) % MCV (80.0-100.0) fL MCH (25.0-35.0) pg MCHC (31.0-37.0) g/dL RDW (11.5-15.5) % Plt Count (150-450) k/uL MPV Neutrophils % % Lymphocytes % % Monocytes % % Eosinophils % % Basophils % % Neutrophils # (1.3-7.7) k/uL Lymphocytes # (1.0-4.8) k/uL Monocytes # (0-1.0) k/uL Eosinophils # (0-0.7) k/uL Basophils # (0-0.2) k/uL Sodium (137-145) mmol/L Potassium (3.5-5.1) mmol/L Chloride (98-107) mmol/L Carbon Dioxide (22-30) mmol/L Anion Gap mmol/L BUN (7-17) mg/dL Creatinine (0.52-1.04) mg/dL Est GFR (CKD-EPI)AfAm (>60 ml/min/1.73 sqM) Est GFR (CKD-EPI)NonAf (>60 ml/min/1.73 sqM) Glucose (74-99) mg/dL Plasma Lactic Acid Rod 1.2 (0.7-2.0) mmol/L Calcium (8.4-10.2) mg/dL Total Bilirubin (0.2-1.3) mg/dL AST (14-36) U/L ALT (4-34) U/L Alkaline Phosphatase (38-126) U/L Troponin I <0.012 (0.000-0.034) ng/mL Total Protein (6.3-8.2) g/dL Albumin (3.5-5.0) g/dL Amylase (30-110) U/L Lipase (23-300) U/L Urine Color Urine Appearance (Clear) Urine pH (5.0-8.0) Ur Specific [place] (1.001-1.035) Urine Protein (Negative) Urine Glucose (UA) (Negative) Urine Ketones (Negative) Urine Blood (Negative) Urine Nitrite (Negative) Urine Bilirubin (Negative) Urine Urobilinogen (<2.0) mg/dL Ur Leukocyte Esterase (Negative) Urine RBC (0-5) /hpf Ur Squamous Epith Cells (0-4) /hpf Amorphous Sediment (None) /hpf Urine Mucus (None) /hpf Disposition <Conner Lomeli - Last Filed: 06/02/24 18:21> Is patient prescribed a controlled substance at d/c from ED?: No Time of Disposition: 02:27 <Sanjiv Payne - Last Filed: 06/03/24 02:28> Clinical Impression: Abdominal pain, Enteritis Disposition: HOME SELF-CARE Condition: Fair Instructions (If sedation given, give patient instructions): Abdominal Pain (ED) Prescriptions: HYDROcodone/APAP 5-325MG [[place] 5-325] 1 tab PO Q6HR PRN #12 tab PRN Reason: Pain Referrals: Moe Rodas MD [Primary Care Provider] - 1-2 days
[2024-06-02 19:48] LABS: Basophils % (A) 1 %; Eosinophils # (A) 0.2 k/uL (0-0.7); Eosinophils % (A) 3 %; HGB 15.3 gm/dL (11.4-16.0); Lymphocytes # (A) 2.6 k/uL (1.0-4.8); Lymphocytes % (A) 36 %; MCH 31.3 pg (25.0-35.0); MCHC 34.9 g/dL (31.0-37.0); MCV 89.6 fL (80.0-100.0); Mean Platelet Volume 7.4; Monocytes # (A) 0.3 k/uL (0-1.0); Monocytes % (A) 4 %; Neutrophils % (A) 55 %; Platelet Count 294 k/uL (150-450); RBC 4.91 m/uL (3.80-5.40); RDW 12.3 % (11.5-15.5); WBC 7.2 k/uL (3.8-10.6)
[2024-06-02 20:05] LABS: ALT 14 U/L (4-34); AST 24 U/L (14-36); African American GFR (CKD) 66 (>60 ml/min/1.73 sqM); Albumin 4.5 g/dL (3.5-5.0); Alkaline Phosphatase 103 U/L (38-126); Amylase 83 U/L (30-110); Anion Gap 12 mmol/L; Blood Urea Nitrogen 19 mg/dL (7-17); Calcium 10.5 mg/dL (8.4-10.2); Carbon Dioxide 23 mmol/L (22-30); Chloride 106 mmol/L (98-107); Glucose 76 mg/dL (74-99); Lipase 191 U/L (23-300); Non-African American GFR(CKD) 57 (>60 ml/min/1.73 sqM); Potassium 3.8 mmol/L (3.5-5.1); Sodium 141 mmol/L (137-145); Total Bilirubin 0.4 mg/dL (0.2-1.3)
[2024-06-03] MEDS: HYDROmorphone 0.5 MG/0.5 ML SYRINGE IVP STA (00:21)
[2024-06-03] MEDS: FAMOTIDINE 20 MG/2 ML VIAL IV STA (00:22)
[2024-06-03] MEDS: ONDANSETRON 4 MG/2 ML VIAL IVP STA (00:22)
[2024-06-03] MEDS: SODIUM CHLORIDE 0.9% 500 ML 500 ML IV ONE (00:23)
--- NOTE | 2024-06-03 02:15 | CT ---
EXAM: CT Abdomen and Pelvis With Intravenous Contrast CLINICAL HISTORY: upper ab pain TECHNIQUE: Axial computed tomography images of the abdomen and pelvis with intravenous contrast. CTDI is 11.5 mGy and DLP is 486.3 mGy-cm. This CT exam was performed using one or more of the following dose reduction techniques: automated exposure control, adjustment of the mA and/or kV according to patient size, and/or use of iterative reconstruction technique. Coronal and sagittal reformatted images were created and reviewed. 620 images COMPARISON: 11/23/22 FINDINGS: Lung bases: Unremarkable. No mass. No consolidation. ABDOMEN: Liver: Unremarkable. No mass. Gallbladder and bile ducts: Cholecystectomy clips. No ductal dilation. Pancreas: Unremarkable. No mass. No ductal dilation. Spleen: Unremarkable. No splenomegaly. Adrenals: Unremarkable. No mass. Kidneys and ureters: Subcentimeter hypodensity in bilateral kidneys, too small to characterize, likely cysts. No hydronephrosis. Stomach and bowel: Short segment of jejunum in the left upper quadrant is mildly dilated to 3 cm maximal diameter has mild circumferential wall thickening measuring up to 7 mm, suggestive jejunitis and focal ileus. PELVIS: Appendix: Normal appendix. Bladder: Unremarkable. No mass. Reproductive: Unremarkable as visualized. ABDOMEN and PELVIS: Intraperitoneal space: Unremarkable. No free air. No significant fluid collection. Bones/joints: Osteopenia suspected. Mild degenerative changes. Soft tissues: Unremarkable. Vasculature: Unremarkable. No abdominal aortic aneurysm. Lymph nodes: Unremarkable. No enlarged lymph nodes. IMPRESSION: jejunitis and associated focal ileus.
[2024-06-03] MEDS: HYDROcodone/APAP 5-325MG 1 EACH TAB PO STA (02:31)
[2024-06-03 02:38] VITALS: BP 105/68; PULSE 74
== END 2024-06-03 02:37 | disposition home or self-care (01) ==
LOC: EC 17:07 → SUPCPDRO 17:07 → EC 06-03 02:37
DX: R10.11 Right upper quadrant pain (principal); K52.9 Noninfective gastroenteritis and colitis, unspecified; Z88.2 Allergy status to sulfonamides; Z88.1 Allergy status to other antibiotic agents
CPT/HCPCS: 99284; 96374; 96375 ×2; 36415; 93005; 80053; 82150; 83605; 83690; 84484; 85025; 81001; 74177; J2405; J3490; J1171; Q9967